=== PATIENT | male | born 1935 | race Caucasian/White ===

== ENCOUNTER 2017-02-28 11:33 | Inpatient (IN) ==
--- NOTE | 2017-02-28 12:11 | Emergency Department Note ---
Disposition Clinical Impression: Confusion, Edema of right lower extremity, Unable to ambulate Disposition: Admitted As Inpatient Condition: Good Referrals: Kranthi Waller MD [Primary Care Provider] - Forms: ED Satisfaction Letter Time of Disposition: 15:36 Extremity Problem HPI - General Chief complaint: ED Extremity Problem,Nontraumatic Stated complaint: Possible DVT Time Seen by Provider: 02/28/17 11:40 Source: patient, family Mode of arrival: ambulatory Limitations: no limitations Nursing Notes Reviewed: Yes Vital Signs Reviewed: Yes - History of Present Illness HPI Narrative: Patient is an 81-year-old male with past medical history of Alzheimer's, CKD, diabetes, venous stasis of bilateral lower extremity. Edema members with the patient states that he usually wears compression stockings daily. He has not been wearing them for the past couple days. This morning, she noticed that his right lower extremity is significantly more swollen and erythematous compared to his left lower extremity. She has also noticed that he has some difficulty with ambulating on the right LE. The patient himself denies any pain, any numbness, tingling, weakness. Denies any chest pain, shortness breath, nausea, vomiting, fevers, abdominal pain. Patient's daughter was concerned about DVT. Is requesting an ultrasound Pain Scale: 5 - Related Data Previous Rx's Medication Instructions Recorded Albuterol Sulfate [Albuterol 1 puff IH Q6HR #1 hfa.aer.ad 11/22/16 Inhaler] Guaifenesin [Mucinex] 600 mg PO BID #20 tab.er.12h 11/22/16 PredniSONE [Prednisone] 50 mg PO DAILY #4 tablet 11/22/16 Allergies Allergy/AdvReac Type Severity Reaction Status Date / Time No Known Allergies Allergy Verified 11/22/16 20:29 Constitutional: Denies: fever Eyes: Denies: eye pain ENT ED: Denies: ear pain Cardiovascular: Denies: chest pain, palpitations Respiratory: Denies: cough, dyspnea, wheezes Gastrointestinal: Denies: abdominal pain, nausea, vomiting, diarrhea, constipation Musculoskeletal: Reports: other Past Medical History - Past Medical History Attestation: Yes The following information was validated with the patient. Source: patient Medical history: Reports: COPD, dementia, diabetes, hyperlipidemia, hypertension , thyroid disease, other Psychiatric history: Reports: no psych history - Social History Smoking Status: Never smoker Smokeless Tobacco Status: No Alcohol use: Reports: none Drug use: Reports: none Physical Exam - General Limitations: no limitations General appearance: alert - Head Head exam: atraumatic, normocephalic, normal inspection - Eye Eye exam: Present: normal appearance, PERRL, EOMI - Extremities Exam Extremities exam: Present: full ROM, pedal edema, other (Patient has venous stasis of bilateral lower extremity's, 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 Right lower extremity significantly more edematous and erythematous than left. Edema worsened all the way up to mid thigh. Pedal +2/4 pulses bilaterally. Posterior tibial pulse +1/4 on right, +2 /4 on left.). Absent: tenderness Course Course Narrative: Patient mildly hypertensive on presentation. 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 Right lower extremity significantly more edematous and erythematous than left. Edema worsened all the way up to mid thigh. Pedal +2/4 pulses bilaterally. Posterior tibial pulse +1/4 on right , +2/4 on left. We will order a Doppler ultrasound of the right LE for DVT assessment. 15:13 Labs show mildly worsened CKD. Head CT negative for any acute intracranial abnormality. Chest x-ray negative for any acute abnormality. Patient was stood up and try to ambulate around the room and was unable to. Patient thought is requesting admission, she is unable to care for him at home. Will admit patient for right lower extremity swelling and edema, inability to ambulate, increased confusion from baseline. Chest X-Ray 02/28/17 12:16 IMPRESSION: 1. No acute abnormality. D/ / Jr Aguirre MD / Jr Aguirre MD Interpreting Provider: Jr Aguirre MD Head CT 02/28/17 12:17 IMPRESSION: No acute intracranial abnormality. D/ / Jarrett Vega MD / Jarrett Vega MD Interpreting Provider: Jarrett Vega MD Vital Signs Temperature 98 F 02/28/17 11:34 Pulse Rate 68 02/28/17 11:34 Respiratory Rate 18 02/28/17 11:34 Blood Pressure 161/74 02/28/17 11:34 O2 Sat by Pulse Oximetry 97 02/28/17 11:34 Temperature 98 F 02/28/17 11:34 Pulse Rate 65 02/28/17 15:01 Respiratory Rate 18 02/28/17 15:01 Blood Pressure 156/61 02/28/17 15:01 O2 Sat by Pulse Oximetry 96 02/28/17 15:01 Oxygen Delivery Oxygen Delivery Room Air Extremity Problem, [place] - [facility] Narrative Medical decision making narrative: Patient mildly hypertensive on presentation. 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 Right lower extremity significantly more edematous and erythematous than left. Edema worsened all the way up to mid thigh. Pedal +2/4 pulses bilaterally. Posterior tibial pulse +1/4 on right , +2/4 on left. We will order a Doppler ultrasound of the right LE for DVT assessment. 15:13 Labs show mildly worsened CKD. Head CT negative for any acute intracranial abnormality. Chest x-ray negative for any acute abnormality. Patient was stood up and try to ambulate around the room and was unable to. Patient thought is requesting admission, she is unable to care for him at home. Will admit patient for right lower extremity swelling and edema, inability to ambulate, increased confusion from baseline. - Medical Records Medical records reviewed: Yes I reviewed the patient's medical records. - Lab Data Lab results reviewed: Yes I reviewed the patient's lab results. Result diagrams: 02/28/17 12:39 02/28/17 12:39 Lab Results 02/28/17 02/28/17 02/28/17 Range/Units 12:39 12:39 12:39 WBC 11.4 H (4.3-11.1) K/mcL RBC 3.96 L (4.19-5.50) M/mcL Hgb 11.5 L (12.9-16.9) g/dL Hct 36.2 L (37.5-50.1) % MCV 91.4 (83.0-100.0) fL MCH 29.0 (28.0-33.3) pg MCHC 31.8 (31.6-35.5) g/dL RDW 13.2 (11.5-14.5) % Plt Count 175 (140-400) K/mcL MPV 12.0 (9.4-12.4) fL Immature Gran % 0.5 (0-4) % Seg Neutrophils % 79.3 % Lymphocytes % 9.3 % Monocytes % 8.7 % Eosinophils % 1.8 % Basophils % 0.4 % Neutrophils # 9.1 H (1.6-8.9) K/mcL Lymphocytes # 1.1 (0.6-4.6) K/mcL Monocytes # 1.0 (0.0-1.3) K/mcL Eosinophils # 0.2 (0.0-0.6) K/mcL Basophils # 0.1 (0.0-0.2) K/mcL Sodium 142 (136-145) mEq/L Potassium 4.0 (3.5-4.5) mEq/L Chloride 100 (98-109) mEq/L Carbon Dioxide 31 H (19-29) mEq/L BUN 34 H (8-26) mg/dL Creatinine 2.16 H (0.72-1.25) mg/dL Est GFR ( Amer) 36 L (> 60) Est GFR (Non-Af Amer) 29 L (> 60) BUN/Creatinine Ratio 16 (6-26) Glucose 185 H (70-99) mg/dL Calculated Osmolality 306 H (280-300) Calcium 9.4 (8.6-10.8) mg/dL Troponin I 0.01 (0-0.03) ng/mL - Radiology Data Radiology results reviewed: Yes I reviewed the patient's radiology results. Chest X-Ray 02/28/17 12:16 IMPRESSION: 1. No acute abnormality. D/ / Jr Aguirre MD / Jr Aguirre MD Interpreting Provider: Jr Aguirre MD Head CT 02/28/17 12:17 IMPRESSION: No acute intracranial abnormality. D/ / Jarrett Vega MD / Jarrett Vega MD Interpreting Provider: Jarrett Vega MD [place] - [place] Situation: Demographics, MOA Background: Presenting Complaint, Relevant PMH, Meds, & Allergies Assessment: Course and respsone to treatment, Exam Concerns, Patient/Family Expectation, Pertinant Lab Results, Outstanding Labs Recommendation: Barrier(s) to disposition, Recommendation based on pending studies, treatments, or consults [place] Report Given to: Dr. Charly Yap Repor Time: 15:36 Attestation Statement - Attestation Attestation: Patient was seen with resident physician. I reviewed the history, physical, assessment and plan, and agree with the findings. I also personally evaluated this patient and had [id number] time with this patient. A 1-year-old male presents to the emergency department with 2 main complaints. Both of these were communicated from the family members the patient's Alzheimer's and is unable to provide a history. Complaints are one increased swelling to the right lower extremity with possible pain. But also worsening coordination and inability to ambulate as he typically can do. Patient has Alzheimer's and are not sure if this is a worsening of disease he also has a history of mini strokes in the not sure if he has had one of those. They note that they have not been using his compression socks for the last 2-3 days which may have prompted the increased swelling of the lower extremity especially on the right side. Family does note that the right one is usually a little bit more swollen than the left, but this is worse with some skin changes as well that are not typically seen. On examination ENT is unremarkable. Heart and lungs are normal. Abdomen is soft and nontender. Extremities the right lower extremity significantly more swollen than the left. Distal pulses are intact. Could not elicit pain with palpation of the posterior calf or posterior thigh on either side. Neurologically the patient provides very little history but does follow some commands and seems to have symmetric strength. Skin exam patient has some erythematous skin changes to the right lower extremity and some darkened skin changes to the left lower extremity both consistent with chronic venous insufficiency, as opposed to acute cellulitis or other acute problems. We will get a head CT scan and check the labs that were drawn earlier today. Is to look into the complaint of worsening ability to ambulate. Additionally will get a duplex of the right lower extremity to rule out a DVT or other such abnormality. Disposition will be determined by what the patient can ambulate throughout his stay and also findings of the workup. DVT study was negative, the patient's unable to ambulate. We will need to admit for PT and OT, and possible intermediate placement. Discussed with hospitalist to arrange admission. I agree with the resident physician assessment and plan.
[2017-02-28 13:02] LABS: Basophils # 0.1 K/mcL (0.0-0.2); Basophils % 0.4 %; Eosinophils # 0.2 K/mcL (0.0-0.6); Eosinophils % 1.8 %; Hematocrit 36.2 % (37.5-50.1); Hemoglobin 11.5 g/dL (12.9-16.9); Immature Granulocytes % 0.5 % (0-4); Lymphocytes # 1.1 K/mcL (0.6-4.6); Lymphocytes % 9.3 %; Mean Corpuscular HGB Conc 31.8 g/dL (31.6-35.5); Mean Corpuscular Volume 91.4 fL (83.0-100.0); Monocytes % 8.7 %; Neutrophils # 9.1 K/mcL (1.6-8.9); Platelet Count 175 K/mcL (140-400); Red Blood Count 3.96 M/mcL (4.19-5.50); Red Cell Distribution Width 13.2 % (11.5-14.5); Segmented Neutrophils % 79.3 %
[2017-02-28 13:13] LABS: Calcium 9.4 mg/dL (8.6-10.8)
--- NOTE | 2017-02-28 16:21 | Internal Med History&Physical ---
Date of Encounter: 02/28/17 Time of Encounter: 16:18 Assessment and Plan (1) Cellulitis Current visit: Yes Status: Acute Suspect early cellulitis. There was slight increase in warmth and redness on the right ankle region and lower leg. I will start the patient on unison. 3 g IV to 6 hours. He has leukocytosis. Will follow his right leg. If no improvement will cover from MRSA. I will check each source ERP and uric acid. He has no prior history of gout. X-ray of the right ankle also be performed to rule out any fractures. Physical therapy and occupational therapy to see the patient Qualifiers: Qualified Code(s): L03.90 - Cellulitis, unspecified (2) Diabetes mellitus type 2 in obese Current visit: Yes Status: Acute Sliding scale insulin Q4 hours. (3) CKD stage 4 due to type 2 diabetes mellitus Current visit: Yes Status: Acute Stable (4) Abdominal distension Current visit: Yes Status: Acute Abdomen is distended. He has divercation of recti. Bowel sounds are present in all tenderness. Is moving his bowels Internal Medicine - H&P: HPI Chief complaint: RIGHT ANKLE PAIN History of present illness: Mr. Urban is a 81 year old male with multiple medical problems including Alzheimer's dementia, diabetes mellitus, chronic kidney disease, venous stasis presents the emergency room today with the main complain of right ankle pain and weakness. Patient was in his usual state of health this morning in fact his daughter has a VDU showing that patient was ambulating independently at home. Throughout the day patient started having problems with ambulation. Specifically he is having problems weight-bearing on the right ankle. There is some increased redness and slight increase in warmth on the right ankle. Patient daughter was concerned brought him to the emergency room. Doppler and the ER. No evidence of DVT. Patient denied any fevers. However he has been more sleepy. He has also been more nauseous and dry heaving. He has been moving bowels fine stools were more soft than usual. No recent antibiotic use. Patient denies any trauma right ankle. Patient denies any focal upper or lower extremity weakness, tingling or numbness in any extremity, facial symmetry or speech sluriness. No recent antibiotic use. Past Med Surg Social Fam HX - Past Medical History Medical history: COPD, dementia, diabetes, hyperlipidemia, hypertension, thyroid disease, other Psychiatric history: no psych history - Social History Smoking Status: Never smoker Smokeless Tobacco Status: No Alcohol use: none Drug use: none Internal Medicine - H&P: Meds Atenolol [Tenormin] 25 mg PO DAILY 02/28/17 [History] Bimatoprost 1 drop OP HS 02/28/17 [History] Calcitriol [Rocaltrol] 0.25 mcg PO DAILY 02/28/17 [History] Cholecalciferol (D-3) [Vitamin D] 5,000 unit PO DAILY 02/28/17 [History] Donepezil [Aricept] 10 mg PO HS 02/28/17 [History] Fenofibrate [Tricor] 54 mg PO DAILY 02/28/17 [History] Ferrous Sulfate [Iron] 325 mg PO Q48H 02/28/17 [History] Furosemide [Lasix] 80 mg PO QAM 02/28/17 [History] Glimepiride [Amaryl] 2 mg PO DAILY 02/28/17 [History] Insulin Glargine,Hum.rec.anlog [Lantus Solostar] 38 unit SQ DAILY 02/28/17 [ History] Mirabegron [Myrbetriq] 50 mg PO DAILY 02/28/17 [History] SitaGLIPtin [Januvia] 50 mg PO DAILY 02/28/17 [History] Timolol Maleate 0.5% 1 drop OP QAM 02/28/17 [History] Allergies No Known Allergies Allergy (Verified 11/22/16 20:29) All Systems PM: A 10-system review of systems was performed and is negative for pertinent findings except as documented above in the HPI. Review of systems: 10 point ROS Is negative except for HPI. - Constitutional Vitals: Temp Pulse Resp BP Pulse Ox 98 F 65 18 156/61 96 02/28/17 11:34 02/28/17 15:01 02/28/17 15:01 02/28/17 15:01 02/28/17 15:01 Exam: Gen.: patient is alert oriented not in distress. Cardiac: Normal S1 S2 no additional sounds or murmurs chest: clear to auscultation abdomen protruberent but soft and BS present. No tenderness lower extremity: SLIGHT INCREASE IN WARMTH IN RIGHT ANKLE AND REDNESS COMPARED TO LEFT neuro no focal deficit Internal Med - H&P Results - Labs CBC & Chem 7: 02/28/17 12:39 02/28/17 12:39
[2017-02-28] MEDS ORDERED: Insulin LISPRO 300 UNITS/3 ML VIAL SQ SCH (16:30)
[2017-02-28] MEDS: Insulin LISPRO 300 UNITS/3 ML VIAL SQ SCH ×3 (17:33→23:21)
[2017-02-28] MEDS: Ampicillin/Sulbactam 3,000 MG in 0.9 % Sodium Chloride Mini Bag 100 ML IVPB SCH (18:01)
[2017-02-28 18:50] LABS: Bilirubin,Urine Negative (Negative); Blood,Urine Negative (Negative); Clarity,Urine Clear (Clear); Color,Urine Yellow (Yellow); Glucose,Urine (UA) Normal (Normal); Ketones,Urine Negative (Negative); Leukocyte Esterase,Urine Negative (Negative); Nitrite,Urine Negative (Negative); PH,Urine 7.5 pH Units (5.0-8.0); Protein,Urine Negative (Neg-Trace); Specific Gravity,Urine 1.012 (1.010-1.025); Urobilinogen,Urine Normal (Normal)
[2017-02-28] MEDS: *HR* Heparin 5,000 UNIT/ML VIAL SQ SCH (20:43)
[2017-02-28] MEDS: BIMATOPROST OP SCH (20:44)
[2017-02-28 21:03] LABS: Uric Acid 9.3 mg/dL (3.5-7.2)
[2017-03-01] MEDS: Insulin LISPRO 300 UNITS/3 ML VIAL SQ SCH ×6 (04:01→23:53)
[2017-03-01] MEDS: *HR* Heparin 5,000 UNIT/ML VIAL SQ SCH ×3 (05:18→21:13)
[2017-03-01] MEDS: Ampicillin/Sulbactam 3,000 MG in 0.9 % Sodium Chloride Mini Bag 100 ML IVPB SCH (05:19)
[2017-03-01 05:57] LABS: Basophils # 0.1 K/mcL (0.0-0.2); Basophils % 0.6 %; Eosinophils # 0.4 K/mcL (0.0-0.6); Eosinophils % 4.2 %; Hematocrit 32.7 % (37.5-50.1); Hemoglobin 10.4 g/dL (12.9-16.9); Immature Granulocytes % 0.5 % (0-4); Lymphocytes # 1.1 K/mcL (0.6-4.6); Lymphocytes % 12.1 %; Mean Corpuscular HGB Conc 31.8 g/dL (31.6-35.5); Mean Corpuscular Hemoglobin 29.1 pg (28.0-33.3); Mean Corpuscular Volume 91.6 fL (83.0-100.0); Mean Platelet Volume 12.2 fL (9.4-12.4); Monocytes # 1.2 K/mcL (0.0-1.3); Monocytes % 13.3 %; Neutrophils # 6.1 K/mcL (1.6-8.9); Platelet Count 157 K/mcL (140-400); Red Blood Count 3.57 M/mcL (4.19-5.50); Red Cell Distribution Width 13.5 % (11.5-14.5); Segmented Neutrophils % 69.3 %
[2017-03-01 06:09] LABS: Calcium 8.9 mg/dL (8.6-10.8); Magnesium 1.9 mg/dL (1.6-2.6); Potassium 3.6 mEq/L (3.5-4.5)
[2017-03-01] MEDS: Furosemide 40 MG TABLET PO SCH (08:37)
[2017-03-01] MEDS: Cholecalciferol (D-3) 1,000 UNIT TABLET PO SCH (08:38)
[2017-03-01] MEDS: Fenofibrate 54 MG TABLET PO SCH (08:38)
[2017-03-01] MEDS ORDERED: Famotidine 20 MG TABLET PO SCH (09:00)
--- NOTE | 2017-03-01 11:13 | Internal Med Progress Note ---
Date of Encounter: 03/01/17 Time of Encounter: 11:10 - Assessment and plan (1) Cellulitis Current Visit: Yes Status: Acute Assessment and plan: Acute metabolic encephalopathy secondary to right lower extremity cellulitis Stop Unasyn and start Ancef, may be discharged on Keflex is improving Blood cultures pending High risk for falling Qualifiers: Qualified Code(s): L03.90 - Cellulitis, unspecified (2) Confusion Current Visit: Yes Status: Acute (3) Unable to ambulate Current Visit: Yes Status: Acute Assessment and plan: Generalized weakness and difficulty ambulating likely secondary to right lower extremity cellulitis and confusion/Alzheimer's dementia PTOT (4) Diabetes mellitus type 2 in obese Current Visit: Yes Status: Acute Assessment and plan: Continue insulin sliding scale (5) CKD stage 4 due to type 2 diabetes mellitus Current Visit: Yes Status: Acute Assessment and plan: Stable May continue Lasix - Subjective Interval history: can not remember which leg was affected, is oriented, denies fever, no abdominal pain , no dysuria, no diarrhea, feels very weak, no SOB or CP - Constitutional Vitals: Temp Pulse Resp BP Pulse Ox 98.4 F 70 18 143/64 96 03/01/17 10:38 03/01/17 10:38 03/01/17 10:38 03/01/17 10:38 03/01/17 10:38 General appearance: Present: A&O X 3 - Head Head exam: Present: atraumatic, normocephalic - Eye Eye exam: Present: PERRL, conjuntiva pink, sclera anicteric Pupils: Present: PERRL - Neck Neck exam general surgery: Present: supple, trachea midline. Absent: lymphadenopathy - Respiratory Respiratory exam: Present: decreased breath sounds, CTAB. Absent: accessory muscle use, rales, rhonchi, wheezes - Cardiovascular Cardiovascular exam: Present: RRR, +S1, +S2. Absent: diastolic murmur, gallop, rubs, systolic murmur - GI/Abdominal GI/Abdominal exam: Present: normal bowel sounds, soft, no peritoneal signs. Absent: distended, tenderness - Extremities Exam Extremities exam: Present: pedal edema (right ankle erythema 6 cm diameter, tender and warm, generalized weakness), warm, radial pulses palpable and symetrical. Absent: calf tenderness, cyanotic - Neurological Exam Neurological exam: Present: CN II-XII intact, oriented X3, no focal deficits. Absent: pronater drift, facial droop, speech deficit - Skin Skin exam: Present: dry, intact Internal Medicine: Result - Labs CBC & Chem 7: 03/01/17 05:31 03/01/17 05:31 Labs: Short CBC 03/01/17 Range/Units 05:31 WBC 8.8 (4.3-11.1) K/mcL Hgb 10.4 L (12.9-16.9) g/dL Hct 32.7 L (37.5-50.1) % Plt Count 157 (140-400) K/mcL Neutrophils # 6.1 (1.6-8.9) K/mcL BMP 03/01/17 05:31 Sodium 140 Potassium 3.6 Chloride 101 Carbon Dioxide 30 H BUN 31 H Creatinine 1.98 H Glucose 104 H Calcium 8.9 Urine 02/28/17 Range/Units 17:37 Urine Color Yellow (Yellow) Urine Clarity Clear (Clear) Urine pH 7.5 (5.0-8.0) pH Units Ur Specific Dawson 1.012 (1.010-1.025) Urine Protein Negative (Neg-Trace) mg/dL Urine Glucose (UA) Normal (Normal) mg/dL - Impressions Impressions Ankle X-Ray 02/28/17 16:08 IMPRESSION: 1. No acute osseous abnormality identified. 2. 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 3. Pronounced nonspecific soft tissue swelling about the ankle. 4. Atherosclerotic disease. D/ / Corey Carballo MD / Corey Carballo MD Interpreting Provider: Corey Carballo MD Consult Discharge Plan - Plan Referrals: Kranthi Waller MD [Primary Care Provider] -
[2017-03-01] MEDS: ceFAZolin 1,000 MG in D5% in Water (Mini-Bag+) 100 ML IVPB SCH ×2 (11:36→21:12)
--- NOTE | 2017-03-01 14:03 | Electrocardiograph Report ---
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
[2017-03-01] MEDS: BIMATOPROST OP SCH (22:01)
[2017-03-02 04:51] LABS: Hematocrit 32.2 % (37.5-50.1); Hemoglobin 10.3 g/dL (12.9-16.9); Mean Corpuscular Hemoglobin 29.2 pg (28.0-33.3); Mean Corpuscular Volume 91.2 fL (83.0-100.0); Mean Platelet Volume 12.2 fL (9.4-12.4); Platelet Count 156 K/mcL (140-400); Red Blood Count 3.53 M/mcL (4.19-5.50); Red Cell Distribution Width 13.3 % (11.5-14.5)
[2017-03-02] MEDS: Insulin LISPRO 300 UNITS/3 ML VIAL SQ SCH ×5 (05:13→20:46)
[2017-03-02] MEDS: ceFAZolin 1,000 MG in D5% in Water (Mini-Bag+) 100 ML IVPB SCH ×3 (05:15→20:45)
[2017-03-02] MEDS: *HR* Heparin 5,000 UNIT/ML VIAL SQ SCH ×3 (05:15→20:45)
[2017-03-02 05:17] LABS: Calcium 9.1 mg/dL (8.6-10.8); Potassium 3.7 mEq/L (3.5-4.5)
[2017-03-02] MEDS: Fenofibrate 54 MG TABLET PO SCH (08:28)
[2017-03-02] MEDS: Furosemide 40 MG TABLET PO SCH (08:28)
[2017-03-02] MEDS: Cholecalciferol (D-3) 1,000 UNIT TABLET PO SCH (08:28)
--- NOTE | 2017-03-02 13:01 | Venous Imaging Report ---
LE Venous Duplex Patient Name:Serge Urban Order Number:[id number] Procedure Date:02/28/2017 Date:4Age:81 yrs Gender:Male Location:[facility] ED Room #: ER30 Senior Operator:Essence Garcia Referring MD:Parviz Mallory DO preschool substitute teacher:Kranthi Waller MD Reading MD:Benjamin aGma MD , FACS Primary Indications:RLE swelling, decreased pulses, erythemia Secondary Indications: Impressions: Right lower extremity: normal superficial and deep exam. Left lower extremity: normal contralateral exam. Recommendations: After imaging the patient returned to their room. Gave vascular preliminary results to Parviz Mallory in the emergency department on 02/28/2017 at 13:20. Test completed on 02/28/2017 at 1:11:00 pm. Findings Venous Duplex Results: Right: Venous imaging of the lower extremity reveals full patency and normal vessel compressibility of the right distal iliac, right common femoral, right superficial femoral, right popliteal, right posterior tibial, right peroneal, right great saphenous and right lesser saphenous. Doppler signals in the evaluated veins were normal. Left: Venous imaging of the lower extremity reveals full patency and normal vessel compressibility of the left common femoral. Doppler signals in the evaluated veins were normal. Prior Study: No prior study available for comparison. Lower Extremity Venous Duplex Side Vein Compress Spontaneous Flow Augment Diameter (cm) Depth (cm) Right Distal Iliac Normal Yes Phasic Yes Right Common Femoral Normal Yes Phasic Yes Right Superficial Femoral Normal Yes Phasic Yes Right Popliteal Normal Yes Phasic Yes Right Posterior Tibial Normal Yes Phasic Yes Right Peroneal Normal Yes Phasic Yes Right Great Saphenous Normal Yes Phasic Yes Right Lesser Saphenous Normal Yes Phasic Yes Left Common Femoral Normal Yes Phasic Yes Updated by Benjamin Gama MD, FACS on 03/02/2017 12:54:35 PM Benjamin Gama MD electronically signed on 03/02/2017 12:55:00 PM with status of Final
--- NOTE | 2017-03-02 13:38 | Internal Med Progress Note ---
Date of Encounter: 03/02/17 Time of Encounter: 13:36 - Assessment and plan (1) Cellulitis Current Visit: Yes Status: Acute Assessment and plan: Acute metabolic encephalopathy secondary to right lower extremity cellulitis Stopped Unasyn COntinue Ancef day 2 Blood cultures pending Discharge planning to ECF on Thursday High risk for falling Qualifiers: Qualified Code(s): L03.90 - Cellulitis, unspecified (2) Confusion Current Visit: Yes Status: Acute (3) Unable to ambulate Current Visit: Yes Status: Acute Assessment and plan: Generalized weakness and difficulty ambulating likely secondary to right lower extremity cellulitis and confusion/Alzheimer's dementia PTOT (4) Diabetes mellitus type 2 in obese Current Visit: Yes Status: Acute Assessment and plan: Continue insulin sliding scale (5) CKD stage 4 due to type 2 diabetes mellitus Current Visit: Yes Status: Acute Assessment and plan: Stable May continue Lasix fall precautions - Time Spent With Patient Greater than 35 minutes - Subjective Interval history: Complains of less pain on his right lower extremity, is oriented, denies fever, no abdominal pain , no dysuria, no diarrhea, feels very weak, no SOB or CP - Constitutional Vitals: Temp Pulse Resp BP Pulse Ox 98.3 F 61 16 157/77 95 03/02/17 11:50 03/02/17 11:50 03/02/17 11:50 03/02/17 11:50 03/02/17 11:50 General appearance: Present: A&O X 3 Exam: very hard of hearing - Head Head exam: Present: atraumatic, normocephalic - Eye Eye exam: Present: PERRL, conjuntiva pink, sclera anicteric Pupils: Present: PERRL - Neck Neck exam general surgery: Present: supple, trachea midline. Absent: lymphadenopathy - Respiratory Respiratory exam: Present: decreased breath sounds, CTAB. Absent: accessory muscle use, rales, rhonchi, wheezes - Cardiovascular Cardiovascular exam: Present: RRR, +S1, +S2. Absent: diastolic murmur, gallop, rubs, systolic murmur - GI/Abdominal GI/Abdominal exam: Present: normal bowel sounds, soft, no peritoneal signs. Absent: distended, tenderness - Extremities Exam Extremities exam: Present: warm, radial pulses palpable and symetrical. Absent : calf tenderness, cyanotic, pedal edema Additional comments: bilateral +1 pitting edema in both lower extremities area of erythema in the internal right ankle is decreasing - Neurological Exam Neurological exam: Present: CN II-XII intact, oriented X3, no focal deficits. Absent: pronater drift, facial droop, speech deficit - Skin Skin exam: Present: dry, intact Internal Medicine: Result - Labs CBC & Chem 7: 03/02/17 04:32 03/02/17 04:32 Labs: Short CBC 03/02/17 Range/Units 04:32 WBC 7.7 (4.3-11.1) K/mcL Hgb 10.3 L (12.9-16.9) g/dL Hct 32.2 L (37.5-50.1) % Plt Count 156 (140-400) K/mcL [facility] 03/02/17 04:32 Sodium 141 Potassium 3.7 Chloride 103 Carbon Dioxide 29 BUN 31 H Creatinine 2.15 H Glucose 127 H Calcium 9.1 - VTE Documentation of Mechanical Device: Intermittent pneumatic compression device Consult Discharge Plan - Plan Referrals: Kranthi Waller MD [Primary Care Provider] - 03/09/17 10:00 am
[2017-03-02] MEDS: BIMATOPROST OP SCH (20:45)
[2017-03-03] MEDS: Insulin LISPRO 300 UNITS/3 ML VIAL SQ SCH ×6 (03:21→21:16)
[2017-03-03] MEDS: ceFAZolin 1,000 MG in D5% in Water (Mini-Bag+) 100 ML IVPB SCH ×2 (05:04→11:46)
[2017-03-03] MEDS: *HR* Heparin 5,000 UNIT/ML VIAL SQ SCH ×3 (05:05→21:16)
[2017-03-03] MEDS: Cholecalciferol (D-3) 1,000 UNIT TABLET PO SCH (08:38)
[2017-03-03] MEDS: Fenofibrate 54 MG TABLET PO SCH (08:38)
[2017-03-03] MEDS: Furosemide 40 MG TABLET PO SCH (08:38)
--- NOTE | 2017-03-03 08:42 | Internal Med Progress Note ---
Date of Encounter: 03/03/17 Time of Encounter: 08:40 - Assessment and plan (1) Cellulitis Current Visit: Yes Status: Acute Assessment and plan: Acute metabolic encephalopathy secondary to right lower extremity cellulitis Patient is at high risk for falling Plan: -Continue Ancef day 3 -Plan to discharge on 7 days of keflex 500mg BID -Blood cultures pending -Discharge pending to ECF on Thursday Qualifiers: Site of cellulitis: extremity Site of cellulitis of extremity: lower extremity Laterality: right Qualified Code(s): L03.115 - Cellulitis of right lower limb (2) Confusion Current Visit: Yes Status: Acute (3) Unable to ambulate Current Visit: Yes Status: Acute Assessment and plan: Generalized weakness and difficulty ambulating likely secondary to right lower extremity cellulitis and confusion/Alzheimer's dementia Plan: -PTOT -Fall Precautions (4) Diabetes mellitus type 2 in obese Current Visit: Yes Status: Acute Assessment and plan: Plan: -Levemir 16units dailly -Continue insulin sliding scale -Accuchecks ACHS (5) CKD stage 4 due to type 2 diabetes mellitus Current Visit: Yes Status: Acute Assessment and plan: Stable Plan: -Continue Lasix -Monitor BMP (6) DVT prophylaxis Current Visit: Yes Status: Acute Assessment and plan: Hep SQ - Subjective Interval history: Patient seen and examined. He is sitting up on the side of the bed. He denies any complaints including CP, SOB, abdominal pain, LE pain. He is oriented to person and place, but not time or situation. - Constitutional Vitals: Temp Pulse Resp BP Pulse Ox 97.7 F 61 16 164/75 93 03/03/17 06:50 03/03/17 06:50 03/03/17 06:50 03/03/17 06:50 03/03/17 06:50 General appearance: Present: cooperative, A&O X 2, no acute distress, obese - Head Head exam: Present: atraumatic, normocephalic - Eye Eye exam: Present: PERRL, conjuntiva pink, sclera anicteric Pupils: Present: PERRL - Neck Neck exam general surgery: Present: supple, trachea midline. Absent: lymphadenopathy - Respiratory Respiratory exam: Present: CTAB. Absent: accessory muscle use, rales, rhonchi, wheezes - Cardiovascular Cardiovascular exam: Present: RRR, +S1, +S2. Absent: diastolic murmur, gallop, rubs, systolic murmur - GI/Abdominal GI/Abdominal exam: Present: normal bowel sounds, soft, no peritoneal signs. Absent: distended, tenderness - Extremities Exam Extremities exam: Present: normal capillary refill, warm, radial pulses palpable and symetrical. Absent: calf tenderness, cyanotic, pedal edema, tenderness - Neurological Exam Neurological exam: Present: alert. Absent: facial droop, speech deficit Additional comments: Alert and oriented to person and place, Not oriented to time or situation - Psychiatric Psychiatric exam: Present: normal affect, normal mood - Skin Skin exam: Present: abrasion (multiple abrasions to top of head), dry. Absent: cyanosis, diaphoretic, erythema Additional comments: chronic venous stasis changes bilateral LE No erythema, warmth or swelling Internal Medicine: Result - Labs CBC & Chem 7: 03/03/17 08:53 03/03/17 08:53 - VTE Documentation of Mechanical Device: Intermittent pneumatic compression device Consult Discharge Plan - Plan Referrals: Kranthi Waller MD [Primary Care Provider] - 03/09/17 10:00 am
[2017-03-03] MEDS ORDERED: Famotidine 20 MG TABLET PO SCH (09:00)
[2017-03-03 09:19] LABS: Basophils # 0.1 K/mcL (0.0-0.2); Basophils % 0.7 %; Eosinophils # 0.4 K/mcL (0.0-0.6); Eosinophils % 4.7 %; Hemoglobin 11.5 g/dL (12.9-16.9); Immature Granulocytes % 0.7 % (0-4); Immature Platelets 10.3 % (1.1-6.1); Lymphocytes # 1.2 K/mcL (0.6-4.6); Lymphocytes % 15.5 %; Mean Corpuscular HGB Conc 31.9 g/dL (31.6-35.5); Mean Corpuscular Volume 90.9 fL (83.0-100.0); Monocytes # 0.8 K/mcL (0.0-1.3); Monocytes % 10.4 %; Neutrophils # 5.2 K/mcL (1.6-8.9); Platelet Count 177 K/mcL (140-400); Red Blood Count 3.96 M/mcL (4.19-5.50); Red Cell Distribution Width 13.1 % (11.5-14.5)
[2017-03-03 09:31] LABS: Calcium 9.7 mg/dL (8.6-10.8); Potassium 4.1 mEq/L (3.5-4.5)
[2017-03-03] MEDS: Insulin DETEMIR 100 UNIT/ML X5UNITS SQ SCH (09:40)
[2017-03-03] MEDS: BIMATOPROST OP SCH (21:17)
[2017-03-03] MEDS: Ipratropium/Albuterol Neb 3 ML IH PRN (23:38)
[2017-03-04] MEDS: ceFAZolin 1,000 MG in D5% in Water (Mini-Bag+) 100 ML IVPB SCH ×2 (01:10→11:21)
[2017-03-04] MEDS: *HR* Heparin 5,000 UNIT/ML VIAL SQ SCH (05:51)
[2017-03-04 06:41] LABS: Calcium 9.6 mg/dL (8.6-10.8); Potassium 3.7 mEq/L (3.5-4.5)
[2017-03-04] MEDS: Insulin DETEMIR 100 UNIT/ML X5UNITS SQ SCH (08:36)
[2017-03-04] MEDS: Cholecalciferol (D-3) 1,000 UNIT TABLET PO SCH (08:36)
[2017-03-04] MEDS: Fenofibrate 54 MG TABLET PO SCH (08:36)
[2017-03-04] MEDS: Furosemide 40 MG TABLET PO SCH (08:36)
[2017-03-04] MEDS: Insulin LISPRO 300 UNITS/3 ML VIAL SQ SCH ×2 (08:37→11:21)
[2017-03-04 10:51] VITALS: BP 153/73
--- NOTE | 2017-03-04 13:34 | Discharge Summary ---
<Adan Souza - Last Filed: 03/04/17 13:51> Date of Encounter: 03/04/17 Time of Encounter: 13:20 - Discharge Diagnosis (1) Edema of right lower extremity Priority: Primary Status: Acute (2) Cellulitis Priority: Primary Status: Acute Qualifiers: Site of cellulitis: extremity Site of cellulitis of extremity: lower extremity Laterality: right Qualified Code(s): L03.115 - Cellulitis of right lower limb (3) Diabetes mellitus type 2 in obese Priority: Secondary Status: Acute (4) CKD stage 4 due to type 2 diabetes mellitus Priority: Secondary Status: Acute (5) COPD (chronic obstructive pulmonary disease) with emphysema Priority: Secondary Status: Acute Qualifiers: Qualified Code(s): J43.9 - Emphysema, unspecified - Discharge Medications Prescriptions: Albuterol Sulfate [Ventolin Hfa] 18 gm IH Q4H PRN #1 hfa.aer.ad PRN Reason: Wheezing Cephalexin [Keflex] 500 mg PO BID 7 Days Home Medications: Atenolol [Tenormin] 25 mg PO DAILY 02/28/17 [History] Bimatoprost 1 drop OP HS 02/28/17 [History] Calcitriol [Rocaltrol] 0.25 mcg PO DAILY 02/28/17 [History] Cholecalciferol (D-3) [Vitamin D] 5,000 unit PO DAILY 02/28/17 [History] Donepezil [Aricept] 10 mg PO HS 02/28/17 [History] Fenofibrate [Tricor] 54 mg PO DAILY 02/28/17 [History] Ferrous Sulfate [Iron] 325 mg PO Q48H 02/28/17 [History] Furosemide [Lasix] 80 mg PO QAM 02/28/17 [History] Glimepiride [Amaryl] 2 mg PO DAILY 02/28/17 [History] Insulin Glargine,Hum.rec.anlog [Lantus Solostar] 38 unit SQ DAILY 02/28/17 [ History] Mirabegron [Myrbetriq] 50 mg PO DAILY 02/28/17 [History] SitaGLIPtin [Januvia] 50 mg PO DAILY 02/28/17 [History] Timolol Maleate 0.5% 1 drop OP QAM 02/28/17 [History] Albuterol Sulfate [Ventolin Hfa] 18 gm IH Q4H PRN #1 hfa.aer.ad 03/04/17 [Rx] Cephalexin [Keflex] 500 mg PO BID 7 Days 03/04/17 [Rx] Ipratropium/Albuterol Neb [Duoneb] 3 ml IH [id number] PRN #0 inhsol 03/04/17 [Rx] Allergies/Adverse Reactions: Allergies No Known Allergies Allergy (Verified 11/22/16 20:29) Date of admission: 03/01/17 12:04 Primary care physician: Kranthi Waller MD Discharging clinician: Adan Souza Anticipated date of discharge: 03/04/17 - Patient Status Disposition: Transfer SNF Condition: Good Functional capacity at discharge: uses cane/walker Overall status at discharge: patient is progressing back to baseline - Discharge Instructions Follow Up With: Kranthi Waller MD [Primary Care Provider] - 03/09/17 10:00 am - Diet and Activity Activity: as per physical therapy Diet: advance to your usual diet Interval History: Mr. Urban is a 81 year old male with multiple medical problems including Alzheimer's dementia, diabetes mellitus, chronic kidney disease, venous stasis admitted to general medical floor with acute metabolic encephalopathy and right lower extremity cellulitis. He was started on Unasyn IV. His laboratory work demonstrated acute on chronic kidney injury. During his inpatient stay he was continued on his home medications for his chronic medical conditions. On day 2 of his inpatient stay Unasyn was discontinued and he was started on Ancef. His mental status demonstrated improvement throughout the remainder of his inpatient stay. He is continued on Ancef for a total 5 days with improvement in his cellulitis which the border were clearly marked during his inpatient stay. Venous Doppler was completed of his right lower extremity and DVT was ruled out. He was seen by physical and occupational therapy and professor of social work. It is determined that he would need inpatient rehabilitation/swing bed at the time of discharge. He continued his inpatient treatments until his day of discharge 03/04/2017. He developed some mild wheezing and provided DuoNeb treatments, but did not require nasal cannula oxygen or any demise to his respiratory status. He was seen and evaluated patient bedside and deemed stable for discharge on 03/04/2017 [place]. Upon discharge she was discharged with a prescription for Keflex 500 mg by mouth twice a day for 7 days. Hospital course: Mr. Urban is a 81 year old male - Time Spent with Patient Total time spent providing and/or coordinating discharge services: - Constitutional Vitals: Temp Pulse Resp BP Pulse Ox 97.6 F 57 16 153/73 94 03/04/17 10:50 03/04/17 10:50 03/04/17 10:50 03/04/17 10:50 03/04/17 10:50 General appearance: Present: cooperative, A&O X 2, no acute distress, obese - Head Head exam: Present: atraumatic, normocephalic - Eye Eye exam: Present: PERRL, conjuntiva pink, sclera anicteric Pupils: Present: PERRL - ENT ENT exam: Present: mucous membranes moist - Neck Neck exam general surgery: Present: supple, trachea midline. Absent: lymphadenopathy - Respiratory Respiratory exam: Present: wheezes. Absent: accessory muscle use, rales, rhonchi - Cardiovascular Cardiovascular exam: Present: RRR, +S1, +S2. Absent: diastolic murmur, gallop, rubs, systolic murmur - GI/Abdominal GI/Abdominal exam: Present: normal bowel sounds, soft, no peritoneal signs. Absent: distended, tenderness - Extremities Exam Extremities exam: Present: warm, radial pulses palpable and symetrical. Absent : calf tenderness, cyanotic, pedal edema Additional comments: right medial ankle erythema improving - VTE Documentation of Mechanical Device: Intermittent pneumatic compression device <Declan Lew - Last Filed: 03/05/17 11:28> Date of Encounter: 03/05/17 Date of admission: 03/01/17 12:04 Primary care physician: Kranthi Waller MD Hospital course: Mr. Urban is a 81 year old male - Time Spent with Patient Total time spent providing and/or coordinating discharge services: - Constitutional Vitals: Temp Pulse Resp BP Pulse Ox 97.6 F 57 16 153/73 94 03/04/17 10:50 03/04/17 10:50 03/04/17 14:11 03/04/17 10:50 03/04/17 14:11 - Attending Attestation Given the visit, note and Continuity, this DC took greater than [address] Lew
--- NOTE | 2017-03-04 13:46 | Physician Discharge Referral ---
ExtendedCare Referral Info Transfer To: [facility] Provider in Charge after Transfer: PCP Institutional Level of Care: Skilled - Diagnosis (1) Edema of right lower extremity Priority: Primary Status: Acute (2) Cellulitis Priority: Primary Status: Acute (3) Diabetes mellitus type 2 in obese Priority: Secondary Status: Acute (4) CKD stage 4 due to type 2 diabetes mellitus Priority: Secondary Status: Acute (5) COPD (chronic obstructive pulmonary disease) with emphysema Priority: Secondary Status: Acute (6) Dementia Priority: Secondary Status: Acute - Transfer Medications Prescriptions: Albuterol Sulfate [Ventolin Hfa] 18 gm IH Q4H PRN #1 hfa.aer.ad PRN Reason: Wheezing Cephalexin [Keflex] 500 mg PO BID 7 Days Home Medications: Atenolol [Tenormin] 25 mg PO DAILY 02/28/17 [History] Bimatoprost 1 drop OP HS 02/28/17 [History] Calcitriol [Rocaltrol] 0.25 mcg PO DAILY 02/28/17 [History] Cholecalciferol (D-3) [Vitamin D] 5,000 unit PO DAILY 02/28/17 [History] Donepezil [Aricept] 10 mg PO HS 02/28/17 [History] Fenofibrate [Tricor] 54 mg PO DAILY 02/28/17 [History] Ferrous Sulfate [Iron] 325 mg PO Q48H 02/28/17 [History] Furosemide [Lasix] 80 mg PO QAM 02/28/17 [History] Glimepiride [Amaryl] 2 mg PO DAILY 02/28/17 [History] Insulin Glargine,Hum.rec.anlog [Lantus Solostar] 38 unit SQ DAILY 02/28/17 [ History] Mirabegron [Myrbetriq] 50 mg PO DAILY 02/28/17 [History] SitaGLIPtin [Januvia] 50 mg PO DAILY 02/28/17 [History] Timolol Maleate 0.5% 1 drop OP QAM 02/28/17 [History] Albuterol Sulfate [Ventolin Hfa] 18 gm IH Q4H PRN #1 hfa.aer.ad 03/04/17 [Rx] Cephalexin [Keflex] 500 mg PO BID 7 Days 03/04/17 [Rx] Ipratropium/Albuterol Neb [Duoneb] 3 ml IH [id number] PRN #0 inhsol 03/04/17 [Rx] Allergies/Adverse Reactions: Allergies No Known Allergies Allergy (Verified 11/22/16 20:29) - Respiratory Orders Smoking Cessation: Smoking cessation has been advised. For more information, call the [place] Tobacco Quit Line at 3-786-CTLE-NOW. - Ancillary Orders May use pressure relief devices daily prn, May consult with Dentist, Reinforcing Steel Placer, Pourer Crane Ladle PRN - Advance Directives Living Will: No Power of Nutrition Partner: No Code Status: DNR-Comfort Care - Mobility Orders Ambulate - Rehabiliation Orders Rehab Potential: Good Rehab Orders: Evaluation for Physical Therapy, Evaluation for Occupational Therapy - Treatments Skin tear care topically daily PRN per policy, Fleet enema rectally every other day PRN cleansing purposes CERTIFICATION: I certify that the transfer of the above named patient to an Extended Care Facility is necessary for the continuing treatment of the diagnosis listed. The above information is true and accurate reflection of patient's current condition. Confidential - Redisclosure prohibited without a patient's written consent.
[2017-03-04] MEDS: Ipratropium/Albuterol Neb 3 ML IH PRN (14:11)
[2017-03-04] MEDS ORDERED: Insulin LISPRO 300 UNITS/3 ML VIAL SQ SCH (21:00)
== END 2017-03-04 15:05 | disposition other institution (70) | DRG 602 ==
LOC: EMEROO 11:33 → 3BNU 11:33 → SUATTDRO 15:51 → 3BNU 17:04 → SUATTDRO 03-01 12:04
PROVIDERS: ADMIT Hospitalist; ATTEND Internal Medicine

== ENCOUNTER 2017-09-24 22:31 | Inpatient (IN) ==
[2017-09-24] MEDS ORDERED: Ipratropium/Albuterol Neb 3 ML IH ONE (22:38)
[2017-09-24] MEDS ORDERED: methylPREDNISolone 125 MG/2 ML VIAL IVP ONE (22:40)
[2017-09-24 23:18] LABS: Basophils # 0.1 K/mcL (0.0-0.2); Basophils % 0.7 %; Eosinophils % 7.6 %; Hematocrit 40.1 % (37.5-50.1); Hemoglobin 12.8 g/dL (12.9-16.9); Immature Granulocytes % 2.2 % (0-4); Lymphocytes # 1.3 K/mcL (0.6-4.6); Lymphocytes % 10.1 %; Mean Corpuscular HGB Conc 31.9 g/dL (31.6-35.5); Mean Corpuscular Hemoglobin 29.7 pg (28.0-33.3); Mean Platelet Volume 11.2 fL (9.4-12.4); Monocytes # 1.2 K/mcL (0.0-1.3); Monocytes % 9.2 %; Neutrophils # 9.3 K/mcL (1.6-8.9); Platelet Count 190 K/mcL (140-400); Red Blood Count 4.31 M/mcL (4.19-5.50); Segmented Neutrophils % 70.2 %
[2017-09-24 23:27] LABS: Bilirubin,Urine Negative (Negative); Blood,Urine Trace (Negative); Clarity,Urine Clear (Clear); Color,Urine Yellow (Yellow); Glucose,Urine (UA) Normal (Normal); Ketones,Urine Negative (Negative); Leukocyte Esterase,Urine Negative (Negative); Nitrite,Urine Negative (Negative); PH,Urine 6.5 pH Units (5.0-8.0); Protein,Urine Negative (Neg-Trace); Specific Gravity,Urine 1.015 (1.010-1.025); Urobilinogen,Urine Normal (Normal)
[2017-09-24 23:30] LABS: Bacteria,Urine None Seen per hpf (None-Few); Hyaline Casts,Urine None Seen per lpf (None-Few); RBC,Urine 0-3 per hpf (0-3); Squamous Epithelial Cell,Urine Few per lpf (None-Few)
[2017-09-24 23:32] LABS: Calcium 9.9 mg/dL (8.6-10.8); Potassium 4.6 mEq/L (3.5-4.5)
--- NOTE | 2017-09-24 23:44 | Emergency Department Note ---
Disposition Clinical Impression: Acute and chronic respiratory failure ([id number]) Disposition: Admitted As Inpatient Condition: Fair Time of Disposition: 04:39 SOB HPI - General Chief Complaint: ED Shortness of Breath/Dyspnea Stated Complaint: HERNANDO Time Seen by Provider: 09/24/17 22:37 Source: family, EMS Limitations: altered mental status Nursing Notes Reviewed: Yes Vital Signs Reviewed: Yes - History of Present Illness Mr. Urban, an 81 old male, presents from home via EMS for altered mentation and hypoxia. Patient was discharged from this facility yesterday and family was led to believe he would be discharged with oxygen. At home, he was saturating while awake at 86%. Patient's daughter noted that, while asleep, his O2 sat would drop. His mentation would wane and he became more confused with slurring of speech. She also notes a 30 sec period of apnea. She understandably became very concerned and called the squad. She also notes patient was not picking up his left foot as much is normal and has a productive cough producing yellow sputum. Patient is DNR-CC. PMH: Chronic kidney disease stage IV, chronic respiratory failure, COPD, diastolic congestive heart failure, diabetes type 2, obesity, dementia Platelet: Aspirin Anticoagulant: None ROS: Positive: Confusion, slurred speech, hypoxia, and productive cough Negative: Fever, chills ECHO from 06/2017 showed ejection fraction of 65% and aortic sclerosis, and mild left ventricular diastolic dysfunction. - Related Data Home Medications Medication Instructions Recorded Confirmed Atenolol [Tenormin] 25 mg PO DAILY 02/28/17 09/20/17 Calcitriol [Rocaltrol] 0.25 mcg PO DAILY 02/28/17 09/20/17 Glimepiride [Amaryl] 2 mg PO DAILY 02/28/17 09/20/17 Insulin Glargine,Hum.rec.anlog 38 unit SQ DAILY 02/28/17 09/20/17 [Lantus Solostar] SitaGLIPtin [Januvia] 50 mg PO DAILY 02/28/17 09/20/17 Aspirin 81 mg PO DAILY 09/20/17 09/20/17 Bimatoprost [Lumigan] 1 drop BOTH EYES QPM 09/20/17 09/20/17 Previous Rx's Medication Instructions Recorded Albuterol Sulfate [Ventolin Hfa] 18 gm IH Q4H PRN #1 hfa.aer.ad 03/04/17 Allopurinol [Zyloprim 100 MG] 200 mg PO DAILY #60 tablet 03/13/17 Ferrous Sulfate 325 mg PO DAILY #30 tablet 03/13/17 Furosemide [Lasix] 40 mg PO QAM PRN #30 tablet 09/23/17 Ipratropium/Albuterol Neb [Duoneb] 3 ml IH [id number] PRN #30 inhsol 09/23/17 Lisinopril-HCTZ 20-12.5 [Prinzide 1 each PO DAILY #30 tablet 09/23/17 20-12.5] Allergies Allergy/AdvReac Type Severity Reaction Status Date / Time No Known Allergies Allergy Verified 09/20/17 11:37 All systems ED: reviewed and negative except as stated. Review of Systems: As Per HPI Past Medical History - Past Medical History Medical history: Reports: COPD, dementia, diabetes, hyperlipidemia, hypertension , renal disease, thyroid disease, other Psychiatric history: Reports: no psych history - Social History Smoking Status: Never smoker Smokeless Tobacco Status: No Alcohol use: Reports: none Drug use: Reports: none Physical Exam Vital Signs Reviewed General: Patient is alert, oriented to self and date of and location and season; not oriented to year, president. In acute respiratory distress using open mouth breathing, mild accessory muscle use. HEENT: No facial asymmetry. Head is normocephalic and atraumatic. PERRL, EOMI. oral mucosa moist. Trachea midline. Cardiovascular: Heart regular rate and rhythm without clicks, rubs, gallops, or murmurs. No JVD. PMI nondisplaced. Respiratory: Symmetric chest rise with poor respiratory effort. Bilateral breath sounds are clear without wheezing, crackles, or rhonchi. Abdomen: Bowel sounds present normoactive x-4 quadrants. Abdomen is soft, nondistended, and nontender. No organomegaly noted. Neuro: GCS 14 (E4, V4, M6) Sensation light touch intact. Psych: Patient's affect is appropriate for situation. - General Limitations: altered mental status General appearance: alert, in no apparent distress Course Course Narrative: Patient presents from home hypoxic. Per daughter bedside who is a medic and appropriate, patient had transient episode of confusion related to his hypoxia. He was discharged yesterday from this facility for acute exacerbation of COPD. There will believe that he will be discharged home with oxygen given his persistent hypoxia. He was not discharged home with oxygen. Home O2 sat was in the mid 80s and worse as he became confused. Daughter is also understand what concerned about his apnea. His lab work is consistent with his baseline. At minimum, patient will need to be admitted for acute hypoxic respiratory failure with the need for home oxygen at discharge. Because the ER is able to provide home oxygen, patient will need to be admitted for continued observation. Next I discussed the patient with the admitting hospitalist, Dr. Judd, who agrees to accept the patient. Vital Signs Temperature 98.6 F 09/24/17 22:33 Pulse Rate 76 09/24/17 22:33 Respiratory Rate 15 09/24/17 22:33 Blood Pressure 141/78 09/24/17 22:33 O2 Sat by Pulse Oximetry 96 09/24/17 22:33 Temperature 98.4 F 09/25/17 01:56 Pulse Rate 74 09/25/17 01:56 Respiratory Rate 18 09/25/17 01:56 Blood Pressure 133/72 09/25/17 01:56 O2 Sat by Pulse Oximetry 94 09/25/17 01:56 Oxygen Delivery Oxygen Delivery Nasal Cannula Shortness of Breath/Dyspnea - Lab Data Lab results reviewed: Yes I reviewed the patient's lab results. Result diagrams: 09/25/17 03:06 09/25/17 03:06 Lab Results 09/24/17 09/24/17 09/24/17 Range/Units 23:03 23:03 23:03 WBC 13.3 H (4.3-11.1) K/mcL RBC 4.31 (4.19-5.50) M/mcL Hgb 12.8 L D (12.9-16.9) g/dL Hct 40.1 (37.5-50.1) % MCV 93.0 (83.0-100.0) fL MCH 29.7 (28.0-33.3) pg MCHC 31.9 (31.6-35.5) g/dL RDW 14.0 (11.5-14.5) % Plt Count 190 (140-400) K/mcL MPV 11.2 (9.4-12.4) fL Immature Gran % 2.2 (0-4) % Seg Neutrophils % 70.2 % Lymphocytes % 10.1 % Monocytes % 9.2 % Eosinophils % 7.6 % Basophils % 0.7 % Neutrophils # 9.3 H (1.6-8.9) K/mcL Lymphocytes # 1.3 (0.6-4.6) K/mcL Monocytes # 1.2 (0.0-1.3) K/mcL Eosinophils # 1.0 H (0.0-0.6) K/mcL Basophils # 0.1 (0.0-0.2) K/mcL Sodium 139 (136-145) mEq/L Potassium 4.6 H (3.5-4.5) mEq/L Chloride 97 L (98-109) mEq/L Carbon Dioxide 33 H (19-29) mEq/L BUN 47 H (8-26) mg/dL Creatinine 2.29 H (0.72-1.25) mg/dL Est GFR ( Amer) 33 L (> 60) Est GFR (Non-Af Amer) 27 L (> 60) BUN/Creatinine Ratio 21 (6-26) Glucose 215 H (70-99) mg/dL Calculated Osmolality 307 H (280-300) Lactic Acid 1.1 (0.5-2.2) mmol/L Calcium 9.9 (8.6-10.8) mg/dL Troponin I (0-0.03) ng/mL B-Natriuretic Peptide (0-100) pg/mL Urine Color (Yellow) Urine Clarity (Clear) Urine pH (5.0-8.0) pH Units Ur Specific [place] (1.010-1.025) Urine Protein (Neg-Trace) mg/dL Urine Glucose (UA) (Normal) mg/dL Urine Ketones (Negative) mg/dL Urine Blood (Negative) Urine Nitrite (Negative) Urine Bilirubin (Negative) Urine Urobilinogen (Normal) mg/dL Ur Leukocyte Esterase (Negative) Urine Microscopic RBC (0-3) per hpf Urine Microscopic WBC (0-3) per hpf Ur Squamous Epith Cells (None-Few) per lpf Urine Bacteria (None-Few) per hpf Hyaline Casts (None-Few) per lpf Ur Culture Indicated? (NO) 09/24/17 09/24/17 09/24/17 Range/Units 23:03 23:03 23:18 WBC (4.3-11.1) K/mcL RBC (4.19-5.50) M/mcL Hgb (12.9-16.9) g/dL Hct (37.5-50.1) % MCV (83.0-100.0) fL MCH (28.0-33.3) pg MCHC (31.6-35.5) g/dL RDW (11.5-14.5) % Plt Count (140-400) K/mcL MPV (9.4-12.4) fL Immature Gran % (0-4) % Seg Neutrophils % % Lymphocytes % % Monocytes % % Eosinophils % % Basophils % % Neutrophils # (1.6-8.9) K/mcL Lymphocytes # (0.6-4.6) K/mcL Monocytes # (0.0-1.3) K/mcL Eosinophils # (0.0-0.6) K/mcL Basophils # (0.0-0.2) K/mcL Sodium (136-145) mEq/L Potassium (3.5-4.5) mEq/L Chloride (98-109) mEq/L Carbon Dioxide (19-29) mEq/L BUN (8-26) mg/dL Creatinine (0.72-1.25) mg/dL Est GFR ( Amer) (> 60) Est GFR (Non-Af Amer) (> 60) BUN/Creatinine Ratio (6-26) Glucose (70-99) mg/dL Calculated Osmolality (280-300) Lactic Acid (0.5-2.2) mmol/L Calcium (8.6-10.8) mg/dL Troponin I 0.03 (0-0.03) ng/mL B-Natriuretic Peptide 26 (0-100) pg/mL Urine Color Yellow (Yellow) Urine Clarity Clear (Clear) Urine pH 6.5 (5.0-8.0) pH Units Ur Specific [place] 1.015 (1.010-1.025) Urine Protein Negative (Neg-Trace) mg/dL Urine Glucose (UA) Normal (Normal) mg/dL Urine Ketones Negative (Negative) mg/dL Urine Blood Trace H (Negative) Urine Nitrite Negative (Negative) Urine Bilirubin Negative (Negative) Urine Urobilinogen Normal (Normal) mg/dL Ur Leukocyte Esterase Negative (Negative) Urine Microscopic RBC 0-3 (0-3) per hpf Urine Microscopic WBC 3-5 H (0-3) per hpf Ur Squamous Epith Cells Few (None-Few) per lpf Urine Bacteria None Seen (None-Few) per hpf Hyaline Casts None Seen (None-Few) per lpf Ur Culture Indicated? NO (NO) - Radiology Data Radiology results reviewed: Yes I reviewed the patient's radiology results. - EKG Data EKG attestation: Yes I reviewed and interpreted this EKG. EKG results narrative: EKG dated 09/24/17 at 22:51 interpreted as sinus rhythm with rate of 72. Normal intervals. Left axis. Right bundle branch block. Nonspecific ST-T changes. Compared to previous dated 02/28/2017 showing no acute ischemic changes or comparison. Attestation Statement - Attestation Attestation: I, Tushar Mcfarlane MD, personally evaluated this patient and discussed their management with the resident physician. I reviewed the resident's note and agree with the documented findings, medical decision making, and plan of care. 81-year-old male presents to the emergency department with family complaining of hypoxia and apnea. Patient was just discharged from the hospital a little over 24 hours ago. He does not have home oxygen. He was hypoxic in the hospital per family. Family reports that his oxygen is been running low at home and since discharge from the hospital he has been more confused and disoriented and talking out of his head. Apparently tonight he also had an apneic episode for about 30 seconds. On examination patient is a well-developed well-nourished elderly male in no acute distress. He is drowsy but responds to verbal stimuli. There is no cyanosis or diaphoresis. Breath sounds are clear and equal bilaterally. Heart regular rate and rhythm. Abdomen is soft and nontender with normal bowel sounds. Labs reviewed. Chest x-ray negative. EKG shows a sinus rhythm with a right bundle-branch block. Heart rate 72. The hospitalist, Dr. Judd, was consulted and accepted admission of the patient.
--- NOTE | 2017-09-25 01:37 | Internal Med History&Physical ---
Date of Encounter: 09/25/17 Time of Encounter: 01:35 Assessment and Plan (1) Acute exacerbation of chronic obstructive airways disease Current visit: Yes Status: Acute - Pt discharged 2 days ago with CHF exacerbation - COPD exacerbation more likely given wheezing on exam, euvolemic status - Prednisone 40 Qday, Duonebs, Supplimental O2 - Consider O2 walk test in AM for home O2. - Palliative consult. (2) CKD stage 4 due to type 2 diabetes mellitus Current visit: Yes Status: Chronic - BUN/Cr of 47/2.29 - Appears to be at baseline from last visit 2 days ago. - Avoid nephrotoxic agents, monitor (3) Dementia Current visit: No Status: Chronic - Family reports worsening of mental status with confusion and disorientation - Possible etiologies include worsening of dementia vs hypercapnia vs hypoxia or combination. - Urine culture done thursday negative for growth. - Will monitor and correct respiratory status. Qualifiers: Dementia type: Alzheimer's disease Alzheimer's disease onset: unspecified onset Dementia behavioral disturbance: without behavioral disturbance Qualified Code(s): G30.9 - Alzheimer's disease, unspecified; F02.80 - Dementia in other diseases classified elsewhere without behavioral disturbance; F02.80 - Dementia in other diseases classified elsewhere without behavioral disturbance; F02.80 - Dementia in other diseases classified elsewhere without behavioral disturbance (4) Diabetes mellitus type 2 in obese Current visit: Yes Status: Chronic - insulin dependent - BS 215 in ED. - Last A1c in 05/16 of 6.5% - Mild SSI, basal insulin 30 units. (5) DVT prophylaxis Current visit: No Status: Acute - Heparin 5000 units subq Internal Medicine - H&P: HPI Chief complaint: SOB, AMS Admitted From: Emergency Dept Plans for Post Hospital Care: Home History of present illness: Mr. Urban is a 81 year old male with a PMHx of COPD, CHF, dementia who presents to ED with a complaint of increasing SOB and increased confusion. He was recently admitted on 09/20 for CHF exacerbation and discharged home with laureen hall in stable condition. Family, who is present at bedside, state that they believed he was supposed to be sent home with home O2, however he never received it. Per chart review, patient was tolerating room air during day of discharge. Family states that pt had improved during previous hospital admission, however they felt that his mental status had not returned to baseline. He reportedly was complaining of SOB at rest and has been somnolent while at home. He has not complained of any fevers, chills, dysuria, nausea, vomiting, chest pain. Family also noticed some difficulty walking today with left leg external rotation and possible weakness. In ED, pt was saturating in low-mid 80s on RA and was placed on 4L O2 with improvement. CXR did not reveal any acute processes. Labs significant for mildly elevated WBC of 13, CKD IV at baseline. Past Med Surg Social Fam HX - Past Medical History Medical history: COPD, dementia, diabetes, hyperlipidemia, hypertension, renal disease, thyroid disease, other Psychiatric history: no psych history - Social History Smoking Status: Never smoker Smokeless Tobacco Status: No Alcohol use: none Drug use: none - Family History Mother Living Status: Hx Family Endocrine Disorder: Yes (DM) Father Living Status: Hx Family Cardiac Disorders: Yes ( maker) Internal Medicine - H&P: Meds Atenolol [Tenormin] 25 mg PO DAILY 02/28/17 [History] Calcitriol [Rocaltrol] 0.25 mcg PO DAILY 02/28/17 [History] Glimepiride [Amaryl] 2 mg PO DAILY 02/28/17 [History] Insulin Glargine,Hum.rec.anlog [Lantus Solostar] 38 unit SQ DAILY 02/28/17 [ History] SitaGLIPtin [Januvia] 50 mg PO DAILY 02/28/17 [History] Albuterol Sulfate [Ventolin Hfa] 18 gm IH Q4H PRN #1 hfa.aer.ad 03/04/17 [Rx] Allopurinol [Zyloprim 100 MG] 200 mg PO DAILY #60 tablet 03/13/17 [Rx] Ferrous Sulfate 325 mg PO DAILY #30 tablet 03/13/17 [Rx] Aspirin 81 mg PO DAILY 09/20/17 [History] Bimatoprost [Lumigan] 1 drop BOTH EYES QPM 09/20/17 [History] Furosemide [Lasix] 40 mg PO QAM PRN #30 tablet 09/23/17 [Rx] Ipratropium/Albuterol Neb [Duoneb] 3 ml IH [id number] PRN #30 inhsol 09/23/17 [Rx] Lisinopril-HCTZ 20-12.5 [Prinzide 20-12.5] 1 each PO DAILY #30 tablet 09/23/17 [ Rx] 3 Allergy/AdvReac Type Severity Reaction Status Date / Time No Known Allergies Allergy Verified 09/20/17 11:37 ROS unobtainable: due to mental status All Systems PM: A 10-system review of systems was performed and is negative for pertinent findings except as documented above in the HPI. - Constitutional Constitutional: weakness, no chills, no fever(s) - Cardiovascular Cardiovascular ROS IM: dyspnea, dyspnea on exertion, no chest pain, no diaphoresis, no orthopnea, no syncope - Respiratory Respiratory: dyspnea, dyspnea on exertion, no cough - Gastrointestinal Gastrointestinal: no constipation, no diarrhea, no nausea, no vomiting - Genitourinary Genitourinary ROS male: no dysuria, no urinary incontinence - Neurological Neurological ROS: abnormal gait, behavioral changes, weakness, no dizziness, no numbness, no tingling, no vertigo, no other visual disturbances - Psychiatric Psychiatric: confusion - Constitutional Vitals: Temp Pulse Resp BP Pulse Ox 98.6 F 75 20 133/71 97 09/24/17 22:33 09/25/17 01:20 09/25/17 01:20 09/25/17 01:20 09/25/17 01:20 Exam: Gen.: Vitals noted. No acute distress. AAOx2 HEENT: PERRL oropharynx clear, Normocephalic, atraumatic, MMM Cardiac: RRR, no murmur, +S1/S2 Pulmonary: Diffuse mild wheezes, worse on right. Tolerating 4L O2, speaking in full sentances. equal chest expansion Abdomen: soft, nontender, BS noted, no guarding, distended. MSK: ROM intact, no joint swelling noted, muscle strength 4/5 throughout. Extremities: no BLE edema, nontender calf, no cyanosis or clubbing Neuro: A&Ox2, moves all extremities, no focal deficits. Sensation intact. CN II- XII intact bilaterally. NIH score 1 Psych: Appropriate mood and behavior Internal Med - H&P Results - Labs CBC & Chem 7: 09/24/17 23:03 09/24/17 23:03 Labs: Short CBC 09/24/17 Range/Units 23:03 WBC 13.3 H (4.3-11.1) K/mcL Hgb 12.8 L D (12.9-16.9) g/dL Hct 40.1 (37.5-50.1) % Plt Count 190 (140-400) K/mcL Neutrophils # 9.3 H (1.6-8.9) K/mcL BMP 09/24/17 23:03 Sodium 139 Potassium 4.6 H Chloride 97 L Carbon Dioxide 33 H BUN 47 H Creatinine 2.29 H Glucose 215 H Calcium 9.9 Cardiac Enzymes 09/24/17 Range/Units 23:03 Troponin I 0.03 (0-0.03) ng/mL Urine 09/24/17 Range/Units 23:18 Urine Color Yellow (Yellow) Urine Clarity Clear (Clear) Urine pH 6.5 (5.0-8.0) pH Units Ur Specific [place] 1.015 (1.010-1.025) Urine Protein Negative (Neg-Trace) mg/dL Urine Glucose (UA) Normal (Normal) mg/dL - Impressions ITS Impressions Chest X-Ray 09/24/17 22:39 IMPRESSION: No acute abnormality detected. D/ / Chirag Bailey MD / Chirag Bailey MD Interpreting Provider: Chirag Bailey MD
[2017-09-25] MEDS ORDERED: Acetaminophen 325 MG TABLET PO PRN (01:45)
[2017-09-25] MEDS ORDERED: Albuterol 2.5 MG/3 ML NEBULIZER IH PRN (01:45)
[2017-09-25] MEDS ORDERED: Ondansetron 4 MG/2 ML VIAL IVP PRN (01:45)
[2017-09-25] MEDS ORDERED: *HR* HYDROcodone/Acet 5/325 mg TABLET PO PRN (01:45)
[2017-09-25] MEDS ORDERED: Naloxone 0.4 MG/ML INJ IVP PRN (01:45)
[2017-09-25] MEDS ORDERED: *HR* Dextrose 50 % in Water (Syg) 50 ML SYRINGE IVP PRN (02:11)
[2017-09-25] MEDS ORDERED: D5% in Water 1,000 ML IVC PRN (02:11)
[2017-09-25] MEDS ORDERED: Dextrose Gel 15 GM PO PRN ×2 (02:11)
[2017-09-25] MEDS ORDERED: Furosemide 20 MG/2 ML VIAL IVP ONE (02:48)
--- NOTE | 2017-09-25 02:59 | Event Note ---
Date of Encounter: 09/25/17 Time of Encounter: 02:58 Patient seen and examined with regional medical director. CHF and copd exacerbation. Observation admission
[2017-09-25 03:34] LABS: Basophils # 0.1 K/mcL (0.0-0.2); Basophils % 0.6 %; Eosinophils # 0.1 K/mcL (0.0-0.6); Eosinophils % 0.8 %; Hemoglobin 12.2 g/dL (12.9-16.9); Immature Granulocytes % 2.3 % (0-4); Lymphocytes # 0.8 K/mcL (0.6-4.6); Lymphocytes % 5.3 %; Mean Corpuscular HGB Conc 31.3 g/dL (31.6-35.5); Mean Corpuscular Hemoglobin 29.3 pg (28.0-33.3); Mean Corpuscular Volume 93.5 fL (83.0-100.0); Monocytes # 0.3 K/mcL (0.0-1.3); Neutrophils # 12.7 K/mcL (1.6-8.9); Platelet Count 186 K/mcL (140-400); Red Blood Count 4.17 M/mcL (4.19-5.50); Red Cell Distribution Width 13.9 % (11.5-14.5)
[2017-09-25 03:48] LABS: Calcium 9.4 mg/dL (8.6-10.8); Potassium 4.6 mEq/L (3.5-4.5)
[2017-09-25] MEDS: Ipratropium/Albuterol Neb 3 ML IH SCH ×4 (04:42→23:57)
[2017-09-25] MEDS: *HR* Heparin 5,000 UNIT/ML VIAL SQ SCH ×2 (06:17→17:35)
--- NOTE | 2017-09-25 09:19 | Palliative - Consult Note ---
<Chon Moran - Last Filed: 09/25/17 09:14> Date of Encounter: 09/25/17 Time of Encounter: 09:14 - Assessment and Plan (1) Goals of care, counseling/discussion Current Visit: Yes Status: Acute Assessment and plan: DNR-CC POA daughter Advanced directives on file Daughter concerned about patient needing O2 at home and that was reason he became confused, sob States patient does not want dialysis in the future if his kidney function declines Patient has large body habitus, Sleep apnea may contribute to confusion as well. -daughter states patient would not be able to tolerate CPAP and BIPAP Patient COPD and CHF currently controlled. CKD IV is stable. -he does not have terminal diagnosis -would not qualify for hospice. (2) Acute exacerbation of chronic obstructive airways disease Current Visit: Yes Status: Acute Assessment and plan: 2nd to copd eacerbation lung exam shows b/l LE rales as well on prednisone, duonebs, and supplemental O2 will need 6m walk test (3) Dementia Current Visit: Yes Status: Chronic Assessment and plan: underlying Alzheimer's progression of disease can contribute to worsening confusion but may also be due to hypoxemia, hypercapnia (no abg done to prove this) Family reports patient sleeps a lot. It would benefit patients confusion to reorient to day night cycle. Not started on any new medications not on donepazil or memantine patient is alert to self, place but not time or situation able to recognize family member in room. family states currently this is his usual mental state. Qualifiers: Dementia type: Alzheimer's disease Alzheimer's disease onset: unspecified onset Dementia behavioral disturbance: without behavioral disturbance Qualified Code(s): G30.9 - Alzheimer's disease, unspecified; F02.80 - Dementia in other diseases classified elsewhere without behavioral disturbance; F02.80 - Dementia in other diseases classified elsewhere without behavioral disturbance; F02.80 - Dementia in other diseases classified elsewhere without behavioral disturbance (4) CKD stage 3 due to type 2 diabetes mellitus Current Visit: Yes Status: Acute Assessment and plan: stable CKD IV not in renal failure as per primary (5) CHF (congestive heart failure) Current Visit: Yes Status: Acute Assessment and plan: EF 65% aortic sclerosis heart exam: 2/6 systolic murmur right sternal border minor rales on exam b/l patient not in respiratory distress trace LE edema management as per primary team. Qualifiers: Congestive heart failure type: diastolic Congestive heart failure chronicity: chronic Qualified Code(s): I50.32 - Chronic diastolic (congestive ) heart failure Palliative-CN HPI - Data of Consult Consult date: 09/25/17 Requesting Physician: Kezia Tang CNP Primary Care Provider: Kranthi aWller MD - Consult Narrative Reason for consult: Palliative care History of present illness: Mr. Urban is a 81 year old male presents with sob and worsening confusion. Patient was recently discharged from [facility] for CHF exacerbation. Family stated that he was supposed to be discharged with home oxygen however this never happened. At home he was hypoxemic with us. 2 in the 80s. Patient was increasingly somnolent, and had worsening confusion compared to baseline. At baseline patient has a subacute dementia, able to eat and ambulate with walker on his own. He is able to recognize family members. Patient's daughter who is also POA stated the patient has been known to from reality, meaning he thought he is traveling everywhere. They also state that he has increased productive sputum that is thick, yellow. Patient is DNR CC. During the encounter with him today he is alert and oriented to self, place but not to time or situation. He is comfortably sitting up in bed eyes open eating breakfast without assistance. He is on 3L O2 and saturating 94%. CC: Kezia Tang CNP Past Med Surg Social Fam HX - Past Medical History Medical history: COPD, dementia, diabetes, hyperlipidemia, hypertension, renal disease, thyroid disease, other Psychiatric history: no psych history - Social History Smoking Status: Never smoker Smokeless Tobacco Status: No Alcohol use: none Drug use: none - Family History Mother Living Status: Hx Family Endocrine Disorder: Yes (DM) Father Living Status: Hx Family Cardiac Disorders: Yes ( maker) Medications and Allergies Atenolol [Tenormin] 25 mg PO DAILY 02/28/17 [History] Calcitriol [Rocaltrol] 0.25 mcg PO DAILY 02/28/17 [History] Glimepiride [Amaryl] 2 mg PO DAILY 02/28/17 [History] Insulin Glargine,Hum.rec.anlog [Lantus Solostar] 38 unit SQ DAILY 02/28/17 [ History] Albuterol Sulfate [Ventolin Hfa] 18 gm IH Q4H PRN #1 hfa.aer.ad 03/04/17 [Rx] Allopurinol [Zyloprim 100 MG] 200 mg PO DAILY #60 tablet 03/13/17 [Rx] Ferrous Sulfate 325 mg PO DAILY #30 tablet 03/13/17 [Rx] Aspirin 81 mg PO DAILY 09/20/17 [History] Bimatoprost [Lumigan] 1 drop BOTH EYES QPM 09/20/17 [History] Furosemide [Lasix] 40 mg PO QAM PRN #30 tablet 09/23/17 [Rx] Ipratropium/Albuterol Neb [Duoneb] 3 ml IH [id number] PRN #30 inhsol 09/23/17 [Rx] Lisinopril-HCTZ 20-12.5 [Prinzide 20-12.5] 1 each PO DAILY #30 tablet 09/23/17 [ Rx] SitaGLIPtin [Januvia] 100 mg PO DAILY 09/25/17 [History] 3 Allergy/AdvReac Type Severity Reaction Status Date / Time No Known Allergies Allergy Verified 09/20/17 11:37 Review of systems: Constitutional: Denies fever, chills HEENT: Denies headache, vision changes, neck pain, sore throat, rhinorrhea Heart: Denies chest pain palpitations Lungs: Reports SOB, prouctive yellow sputum. Abdomen: Denies abdominal pain nausea vomiting diarrhea Back: Denies back pain Kidney: Denies dysuria, hematuria Skin: warm and dry Extremities: Denies swelling, pain Neuro: Denies numbness, and tingling Palliative Care-Exam - Constitutional Vitals: Temp Pulse Resp BP Pulse Ox 97.8 F 69 14 114/65 95 09/25/17 08:25 09/25/17 08:25 09/25/17 08:25 09/25/17 08:25 09/25/17 08:25 - Other Additional findings: General: without distress HEENT: Head atraumatic, normocephalic, EOMI, PERRL, neck nontender to palpation , absent lymphadenopathy, Moist Mucous Membranes, Heart: Regular rate and rhythm with no murmur Lungs: b/l basiar rales otherwise clear Abdomen: Soft nontender, nondistended positive bowel sounds. central obesity Skin: warm and dry Extremities: trace pedal edema, Neuro: alert and oriented x2 Vascular: Pedal and radial pulses 2 out of 4 Internal Medicine - CN: Reslt - Labs CBC & Chem 7: 09/25/17 03:06 09/25/17 03:06 Labs: Short CBC 09/25/17 Range/Units 03:06 WBC 14.3 H (4.3-11.1) K/mcL Hgb 12.2 L (12.9-16.9) g/dL Hct 39.0 (37.5-50.1) % Plt Count 186 (140-400) K/mcL Neutrophils # 12.7 H (1.6-8.9) K/mcL BMP 09/25/17 03:06 Sodium 138 Potassium 4.6 H Chloride 98 Carbon Dioxide 31 H BUN 48 H Creatinine 2.19 H Glucose 244 H Calcium 9.4 Consult Discharge Plan - Plan Referrals: Kranthi Waller MD [Primary Care Provider] - Palliative Quality Palliative Quality: Screen for Code Status: Yes, Screen for Goals of Care: Yes, Screen for Pain: Yes, If Pain Regimen Started, Initiate Bowel Regimen: NA, Screen for Nausea/Vomitting: Yes Code Status: 09/25/17 01:45 Resuscitation Status: Active [RES] Routine Comment: Resuscitation Status: DNR-Comfort Care <Rigo Chavez - Last Filed: 09/25/17 10:59> Date of Encounter: 09/25/17 Palliative-CN HPI - Data of Consult Requesting Physician: Kezia Tang CNP Primary Care Provider: Kranthi Waller MD - Consult Narrative History of present illness: Mr. Urban is a 81 year old male CC: Kezia Tang CNP Palliative Care-Exam - Constitutional Vitals: Temp Pulse Resp BP Pulse Ox 98.4 F 77 16 136/71 95 09/25/17 10:47 09/25/17 10:47 09/25/17 10:47 09/25/17 10:47 09/25/17 10:47 Internal Medicine - CN: Reslt - Labs CBC & Chem 7: 09/25/17 03:06 09/25/17 03:06 Labs: Short CBC 09/25/17 Range/Units 03:06 WBC 14.3 H (4.3-11.1) K/mcL Hgb 12.2 L (12.9-16.9) g/dL Hct 39.0 (37.5-50.1) % Plt Count 186 (140-400) K/mcL Neutrophils # 12.7 H (1.6-8.9) K/mcL BMP 09/25/17 03:06 Sodium 138 Potassium 4.6 H Chloride 98 Carbon Dioxide 31 H BUN 48 H Creatinine 2.19 H Glucose 244 H Calcium 9.4 - Attending Attestation I examined this patient and my medical decision-making was reviewed with the Resident Physician. I agree with the documented findings, disposition and treatment plan as described except to the extent set forth below. pt does not currently meeting criteria for hospice, pt would benifit from home health and probably O2 sw is working on that as palliative was consulted re hospice we will sign off please reconsult if we can help in any way Palliative Quality Code Status: 09/25/17 01:45 Resuscitation Status: Active [RES] Routine Comment: Resuscitation Status: DNR-Comfort Care
[2017-09-25] MEDS: Insulin LISPRO 300 UNITS/3 ML VIAL SQ SCH ×3 (09:29→17:35)
[2017-09-25] MEDS: Furosemide 20 MG/2 ML VIAL IVP SCH ×2 (09:29→17:35)
[2017-09-25] MEDS: Insulin DETEMIR 100 UNIT/ML X5UNITS SQ SCH ×2 (09:29→22:13)
[2017-09-25] MEDS: Aspirin 81 MG TAB.CHEW PO SCH (09:29)
[2017-09-25] MEDS: Lisinopril-HCTZ 20-12.5mg TABLET PO SCH (09:30)
[2017-09-25] MEDS: predniSONE 20 MG TABLET PO SCH (09:30)
[2017-09-25] MEDS: Azithromycin 250 MG TABLET PO SCH (09:30)
[2017-09-25 12:12] LABS: ABG Base Excess 7 mEq/L (-2 to 3); ABG HCO3 33 mEq/L (21-27); ABG Oxygen Saturation 94 % (95-98); ABG PCO2 56 mmHg (35-45); ABG PH 7.38 pH Units (7.32-7.45); ABG PO2 74 mmHg (85-104); ABG TCO2 35 mEq/L (20-26)
--- NOTE | 2017-09-25 16:54 | Internal Med Progress Note ---
Date of Encounter: 09/25/17 Time of Encounter: 11:40 - Assessment and plan (1) Acute exacerbation of chronic obstructive airways disease Current Visit: Yes Status: Acute Assessment and plan: Acute exacerbation of COPD - symptoms now improved Continue DuoNeb breathing treatment, Prednisone, O2 via nasal cannula Chest x-ray - no acute abnormality Troponin - 0.03 BNP - 26 EKG - sinus rhythm, RBBB, no acute ST-T changes ABG - pending Patient qualifies for home O2 Cardiac telemetry, continuous pulse ox, labs in a.m., monitor closely (2) CHF (congestive heart failure) Current Visit: Yes Status: Chronic Assessment and plan: Diastolic CHF LVEF 65% - not in exacerbation ECHO from 06/2017 showed ejection fraction of 65% and aortic sclerosis, and mild left ventricular diastolic dysfunction Continue IV Lasix, Lisinopril, Atenolol Continue daily weights and strict intake and output, fluid restriction, cardiac telemetry Qualifiers: Congestive heart failure type: diastolic Congestive heart failure chronicity: chronic Qualified Code(s): I50.32 - Chronic diastolic (congestive ) heart failure (3) CKD stage 4 due to type 2 diabetes mellitus Current Visit: Yes Status: Chronic Assessment and plan: Chronic kidney disease stage IV - creatinine slightly higher than baseline Repeat labs in a.m., monitor closely Avoid nephrotoxic agents (4) Diabetes mellitus type 2 in obese Current Visit: Yes Status: Chronic Assessment and plan: Type 2 diabetes mellitus, insulin-dependent, hyperglycemia Continue Levemir, insulin sliding scale, glucose checks (5) Dementia Current Visit: Yes Status: Chronic Assessment and plan: 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 Seems to at baseline mental status Qualifiers: Dementia type: Alzheimer's disease Alzheimer's disease onset: unspecified onset Dementia behavioral disturbance: without behavioral disturbance Qualified Code(s): G30.9 - Alzheimer's disease, unspecified; F02.80 - Dementia in other diseases classified elsewhere without behavioral disturbance; F02.80 - Dementia in other diseases classified elsewhere without behavioral disturbance; F02.80 - Dementia in other diseases classified elsewhere without behavioral disturbance (6) DVT prophylaxis Current Visit: Yes Status: Acute Assessment and plan: Continue heparin subcutaneous - Time Spent With Patient 25 - 35 minutes - Subjective Interval history: Examined this morning. Patient is awake and alert. Not in any distress. Denies chest pain or shortness of breath. Patient does have moderate dementia and is confused at times. Patient was admitted last night for acute exacerbation of COPD. Patient seems to be doing better this morning. Hemodynamically stable. No fever. No other acute events or complaints. I discussed about the patient's condition with the daughter and son. They understood and agreed. Patient does qualify for home oxygen for continuous use. - Constitutional Vitals: Temp Pulse Resp BP Pulse Ox 98.3 F 80 16 118/63 93 09/25/17 15:38 09/25/17 15:38 09/25/17 15:55 09/25/17 15:38 09/25/17 15:55 General appearance: Present: cooperative, A&O X 2, pleasant, no acute distress, answers questions appropriately - Head Head exam: Present: atraumatic - Eye Eye exam: Present: EOMI - ENT ENT exam: Present: mucous membranes moist - Respiratory Respiratory exam: Present: rales (Mild bilateral basilar). Absent: accessory muscle use, rhonchi, wheezes, tachypnea - Cardiovascular Cardiovascular exam: Present: RRR, +S1, +S2 - GI/Abdominal GI/Abdominal exam: Present: soft (Obese). Absent: distended, firm, guarding, tenderness - Extremities Exam Extremities exam: Present: pedal edema (Mild bilateral edema), radial pulses palpable and symmetrical. Absent: calf tenderness, cyanotic - Neurological Exam Neurological exam: Present: alert, CN II-XII intact, no focal deficits. Absent : facial droop, speech deficit Additional comments: Patient able to verbalize and follows commands. Oriented to place and person but not to time. He does have baseline dementia. Internal Medicine: Result - Labs CBC & Chem 7: 09/25/17 03:06 09/25/17 03:06 Labs: Short CBC 09/25/17 Range/Units 03:06 WBC 14.3 H (4.3-11.1) K/mcL Hgb 12.2 L (12.9-16.9) g/dL Hct 39.0 (37.5-50.1) % Plt Count 186 (140-400) K/mcL Neutrophils # 12.7 H (1.6-8.9) K/mcL BMP 09/25/17 03:06 Sodium 138 Potassium 4.6 H Chloride 98 Carbon Dioxide 31 H BUN 48 H Creatinine 2.19 H Glucose 244 H Calcium 9.4 - ABG Interpretation ABG results: ABG ABG pH 7.38 pH Units (7.32-7.45) 09/25/17 12:09 ABG pCO2 56 mmHg (35-45) H 09/25/17 12:09 ABG pO2 74 mmHg (85-104) L 09/25/17 12:09 ABG O2 Saturation 94 % (95-98) L 09/25/17 12:09 Consult Discharge Plan - Plan Referrals: Kranthi Waller MD [Primary Care Provider] -
[2017-09-25] MEDS: Latanoprost 2.5 ML BOTTLE BOTH EYES SCH (17:35)
[2017-09-26 01:39] LABS: Basophils # 0.1 K/mcL (0.0-0.2); Basophils % 0.2 %; Hematocrit 36.2 % (37.5-50.1); Hemoglobin 11.8 g/dL (12.9-16.9); Immature Granulocytes % 1.6 % (0-4); Immature Platelets 6.3 % (1.1-6.1); Lymphocytes # 1.1 K/mcL (0.6-4.6); Lymphocytes % 4.9 %; Mean Corpuscular HGB Conc 32.6 g/dL (31.6-35.5); Mean Corpuscular Hemoglobin 29.9 pg (28.0-33.3); Mean Corpuscular Volume 91.6 fL (83.0-100.0); Mean Platelet Volume 11.7 fL (9.4-12.4); Monocytes # 1.2 K/mcL (0.0-1.3); Monocytes % 5.2 %; Neutrophils # 20.4 K/mcL (1.6-8.9); Platelet Count 206 K/mcL (140-400); Red Blood Count 3.95 M/mcL (4.19-5.50); Red Cell Distribution Width 13.6 % (11.5-14.5); Segmented Neutrophils % 88.1 %
[2017-09-26 01:54] LABS: Calcium 9.1 mg/dL (8.6-10.8); Potassium 4.5 mEq/L (3.5-4.5)
[2017-09-26] MEDS: Ipratropium/Albuterol Neb 3 ML IH SCH ×4 (03:33→22:15)
[2017-09-26 04:59] LABS: ABG Base Excess 7 mEq/L (-2 to 3); ABG HCO3 33 mEq/L (21-27); ABG Oxygen Saturation 91 % (95-98); ABG PCO2 54 mmHg (35-45); ABG PH 7.39 pH Units (7.32-7.45); ABG PO2 63 mmHg (85-104); ABG TCO2 35 mEq/L (20-26)
[2017-09-26] MEDS: *HR* Heparin 5,000 UNIT/ML VIAL SQ SCH ×2 (05:50→17:53)
[2017-09-26] MEDS: Azithromycin 250 MG TABLET PO SCH (08:16)
[2017-09-26] MEDS: predniSONE 20 MG TABLET PO SCH (08:16)
[2017-09-26] MEDS: Lisinopril-HCTZ 20-12.5mg TABLET PO SCH (08:16)
[2017-09-26] MEDS: Aspirin 81 MG TAB.CHEW PO SCH (08:16)
[2017-09-26] MEDS: Furosemide 20 MG/2 ML VIAL IVP SCH (08:17)
[2017-09-26] MEDS: Insulin LISPRO 300 UNITS/3 ML VIAL SQ SCH ×3 (08:17→17:55)
--- NOTE | 2017-09-26 10:21 | Internal Med Progress Note ---
Date of Encounter: 09/26/17 Time of Encounter: 07:40 - Assessment and plan (1) Acute exacerbation of chronic obstructive airways disease Current Visit: Yes Status: Acute Assessment and plan: Acute exacerbation of COPD - symptoms now improved - now oxygen dependent Continue DuoNeb breathing treatment, Prednisone, O2 via nasal cannula Chest x-ray - no acute abnormality Troponin - 0.03 BNP - 26 EKG - sinus rhythm, RBBB, no acute ST-T changes ABG - pending Patient qualifies for home O2 Cardiac telemetry, continuous pulse ox, labs in a.m., monitor closely (2) CKD stage 4 due to type 2 diabetes mellitus Current Visit: Yes Status: Chronic Assessment and plan: Acute kidney injury on Chronic kidney disease stage IV - creatinine slightly higher than baseline MARINA likely due to Lasix use and Lisinopril/HCTZ - hold these meds Repeat labs in a.m., monitor closely, nephrology consult if renal function worsens Avoid nephrotoxic agents (3) CHF (congestive heart failure) Current Visit: Yes Status: Chronic Assessment and plan: Diastolic CHF LVEF 65% - not in exacerbation ECHO from 06/2017 showed ejection fraction of 65% and aortic sclerosis, and mild left ventricular diastolic dysfunction Continue Atenolol Lasix and Lisinopril/HCTZ due to acute kidney injury Continue daily weights and strict intake and output, fluid restriction, cardiac telemetry Qualifiers: Congestive heart failure type: diastolic Congestive heart failure chronicity: chronic Qualified Code(s): I50.32 - Chronic diastolic (congestive ) heart failure (4) Diabetes mellitus type 2 in obese Current Visit: Yes Status: Chronic Assessment and plan: Type 2 diabetes mellitus, insulin-dependent, hyperglycemia Continue Levemir, insulin sliding scale, glucose checks (5) Dementia Current Visit: Yes Status: Chronic Assessment and plan: 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 Seems to at baseline mental status Qualifiers: Dementia type: Alzheimer's disease Alzheimer's disease onset: unspecified onset Dementia behavioral disturbance: without behavioral disturbance Qualified Code(s): G30.9 - Alzheimer's disease, unspecified; F02.80 - Dementia in other diseases classified elsewhere without behavioral disturbance; F02.80 - Dementia in other diseases classified elsewhere without behavioral disturbance; F02.80 - Dementia in other diseases classified elsewhere without behavioral disturbance (6) DVT prophylaxis Current Visit: Yes Status: Acute Assessment and plan: Continue heparin subcutaneous - Time Spent With Patient 25 - 35 minutes - Subjective Interval history: Examined this morning. Patient is awake and alert. Not in any distress. Denies chest pain or shortness of breath. Sitting up in chair. Tolerating oral diet. Patient does have moderate dementia and is confused at times. Patient admitted for acute exacerbation of COPD. Seems to be improving. Hemodynamically stable. No fever. No other acute events or complaints. Patient does have acute kidney injury likely due to Lasix use and Lisinopril. The meds have been stopped. His white count has also bumped up. I discussed about the patient's condition with the daughter and son. They understood and agreed. Patient does qualify for home oxygen for continuous use. - Constitutional Vitals: Temp Pulse Resp BP Pulse Ox 97.9 F 69 16 113/63 94 09/26/17 07:51 09/26/17 07:51 09/26/17 07:51 09/26/17 07:51 09/26/17 07:51 General appearance: Present: cooperative, A&O X 2, pleasant, no acute distress, answers questions appropriately - Head Head exam: Present: atraumatic - Eye Eye exam: Present: EOMI - ENT ENT exam: Present: mucous membranes moist - Respiratory Respiratory exam: Present: wheezes (Mild bilateral). Absent: accessory muscle use, rales, rhonchi, tachypnea - Cardiovascular Cardiovascular exam: Present: RRR, +S1, +S2 - GI/Abdominal GI/Abdominal exam: Present: soft (Obese). Absent: distended, firm, guarding, tenderness - Extremities Exam Extremities exam: Present: pedal edema (Mild bilateral), radial pulses palpable and symmetrical. Absent: calf tenderness, cyanotic - Neurological Exam Neurological exam: Present: alert, CN II-XII intact, no focal deficits. Absent : facial droop, speech deficit Additional comments: Patient able to verbalize and follows commands. Oriented to place and person but not to time. He does have baseline dementia. Internal Medicine: Result - Labs CBC & Chem 7: 09/26/17 01:17 09/26/17 01:17 Labs: Short CBC 09/26/17 Range/Units 01:17 WBC 23.1 H D (4.3-11.1) K/mcL Hgb 11.8 L (12.9-16.9) g/dL Hct 36.2 L (37.5-50.1) % Plt Count 206 (140-400) K/mcL Neutrophils # 20.4 H (1.6-8.9) K/mcL BMP 09/26/17 01:17 Sodium 135 L Potassium 4.5 Chloride 95 L Carbon Dioxide 30 H BUN 71 H D Creatinine 2.86 H Glucose 298 H Calcium 9.1 - ABG Interpretation ABG results: ABG ABG pH 7.39 pH Units (7.32-7.45) 09/26/17 04:56 ABG pCO2 54 mmHg (35-45) H 09/26/17 04:56 ABG pO2 63 mmHg (85-104) L 09/26/17 04:56 ABG O2 Saturation 91 % (95-98) L 09/26/17 04:56 Consult Discharge Plan - Plan Referrals: Kranthi Waller MD [Primary Care Provider] -
[2017-09-26] MEDS: cefTRIAXone 1,000 MG in Water for inj. (sterile) 10 ML IVP SCH (12:28)
[2017-09-26] MEDS: Insulin DETEMIR 100 UNIT/ML X5UNITS SQ SCH ×2 (12:29→20:34)
[2017-09-26] MEDS: Latanoprost 2.5 ML BOTTLE BOTH EYES SCH (17:54)
[2017-09-26] MEDS: 0.9 % Sodium Chloride 1,000 ML IVC SCH (17:55)
[2017-09-27] MEDS: Ipratropium/Albuterol Neb 3 ML IH SCH ×4 (05:08→23:01)
[2017-09-27 05:26] LABS: ABG Base Excess 5 mEq/L (-2 to 3); ABG HCO3 31 mEq/L (21-27); ABG Oxygen Saturation 97 % (95-98); ABG PCO2 51 mmHg (35-45); ABG PO2 91 mmHg (85-104); ABG TCO2 33 mEq/L (20-26)
[2017-09-27] MEDS: *HR* Heparin 5,000 UNIT/ML VIAL SQ SCH ×2 (05:27→18:20)
[2017-09-27 05:31] LABS: Basophils % 0.2 %; Eosinophils % 0.2 %; Hematocrit 35.6 % (37.5-50.1); Hemoglobin 11.4 g/dL (12.9-16.9); Immature Granulocytes % 1.5 % (0-4); Lymphocytes # 1.4 K/mcL (0.6-4.6); Lymphocytes % 8.4 %; Mean Corpuscular Hemoglobin 29.8 pg (28.0-33.3); Mean Platelet Volume 11.9 fL (9.4-12.4); Monocytes # 1.2 K/mcL (0.0-1.3); Monocytes % 7.3 %; Platelet Count 202 K/mcL (140-400); Red Blood Count 3.83 M/mcL (4.19-5.50); Red Cell Distribution Width 13.7 % (11.5-14.5); Segmented Neutrophils % 82.4 %
[2017-09-27 06:02] LABS: Calcium 8.7 mg/dL (8.6-10.8)
[2017-09-27] MEDS: predniSONE 20 MG TABLET PO SCH (09:13)
[2017-09-27] MEDS: Azithromycin 250 MG TABLET PO SCH (09:13)
[2017-09-27] MEDS: Aspirin 81 MG TAB.CHEW PO SCH (09:13)
[2017-09-27] MEDS: 0.9 % Sodium Chloride 1,000 ML IVC SCH (09:14)
[2017-09-27] MEDS: Insulin LISPRO 300 UNITS/3 ML VIAL SQ SCH ×3 (09:14→18:20)
[2017-09-27] MEDS: Insulin DETEMIR 100 UNIT/ML X5UNITS SQ SCH ×2 (09:15→22:00)
--- NOTE | 2017-09-27 09:48 | Internal Med Progress Note ---
Date of Encounter: 09/27/17 Time of Encounter: 07:30 - Assessment and plan (1) Acute exacerbation of chronic obstructive airways disease Current Visit: Yes Status: Acute Assessment and plan: Acute exacerbation of COPD - symptoms now improved - now oxygen dependent - patient seems to be back to baseline Continue DuoNeb breathing treatment, Prednisone, O2 via nasal cannula Chest x-ray - no acute abnormality Troponin - 0.03 BNP - 26 EKG - sinus rhythm, RBBB, no acute ST-T changes ABG - hypercapnia and hypoxia have now improved Patient qualifies for home O2 Cardiac telemetry, continuous pulse ox, labs in a.m., monitor closely, anticipate discharge tomorrow (2) CKD stage 4 due to type 2 diabetes mellitus Current Visit: Yes Status: Chronic Assessment and plan: Acute kidney injury on Chronic kidney disease stage IV - creatinine seems to be back to baseline at this time - improved with gentle IV hydration MARINA likely due to Lasix use and Lisinopril/HCTZ - hold these meds Repeat labs in a.m., monitor closely, nephrology consult if renal function worsens Avoid nephrotoxic agents (3) CHF (congestive heart failure) Current Visit: Yes Status: Chronic Assessment and plan: Diastolic CHF LVEF 65% - not in exacerbation - patient does have bilateral leg edema - watch for fluid overload ECHO from 06/2017 showed ejection fraction of 65% and aortic sclerosis, and mild left ventricular diastolic dysfunction Continue Atenolol Hold Lasix and Lisinopril/HCTZ due to acute kidney injury Continue daily weights and strict intake and output, fluid restriction, cardiac telemetry Qualifiers: Congestive heart failure type: diastolic Congestive heart failure chronicity: chronic Qualified Code(s): I50.32 - Chronic diastolic (congestive ) heart failure (4) Diabetes mellitus type 2 in obese Current Visit: Yes Status: Chronic Assessment and plan: Type 2 diabetes mellitus, insulin-dependent, hyperglycemia Continue Levemir, insulin sliding scale, glucose checks (5) Dementia Current Visit: Yes Status: Chronic Assessment and plan: 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 Seems to at baseline mental status Supportive care if patient has acute delirium Qualifiers: Dementia type: Alzheimer's disease Alzheimer's disease onset: unspecified onset Dementia behavioral disturbance: without behavioral disturbance Qualified Code(s): G30.9 - Alzheimer's disease, unspecified; F02.80 - Dementia in other diseases classified elsewhere without behavioral disturbance; F02.80 - Dementia in other diseases classified elsewhere without behavioral disturbance; F02.80 - Dementia in other diseases classified elsewhere without behavioral disturbance (6) DVT prophylaxis Current Visit: Yes Status: Acute Assessment and plan: Continue Heparin subcutaneous - Time Spent With Patient 25 - 35 minutes - Subjective Interval history: Examined this morning. Patient is awake and alert. Not in any distress. Denies chest pain or shortness of breath. Sitting comfortably in bed. Tolerating oral diet. Patient does have moderate dementia and is confused at times, but able to answer questions appropriately. Hemodynamically stable. No fever. No other acute events or complaints. Patient admitted for acute exacerbation of COPD. Seems to be improving. Patient does have acute kidney injury likely due to Lasix use and Lisinopril. The meds have been stopped. Creatinine is now back to baseline and his white count has improved. I discussed about the patient's condition with the daughter and son in detail. They understood and agreed. Patient does qualify for home oxygen for continuous use. - Constitutional Vitals: Temp Pulse Resp BP Pulse Ox 98.0 F 65 16 147/65 97 09/27/17 07:51 09/27/17 07:51 09/27/17 07:51 09/27/17 07:51 09/27/17 07:51 General appearance: Present: cooperative, A&O X 2, pleasant, no acute distress, answers questions appropriately - Head Head exam: Present: atraumatic - Eye Eye exam: Present: EOMI - ENT ENT exam: Present: mucous membranes moist - Respiratory Respiratory exam: Present: wheezes (Mild bilateral basilar). Absent: rales, rhonchi, tachypnea - Cardiovascular Cardiovascular exam: Present: RRR, +S1, +S2 - GI/Abdominal GI/Abdominal exam: Present: soft (Obese). Absent: distended, firm, guarding, tenderness - Extremities Exam Extremities exam: Present: pedal edema (Bilateral lower leg 2+ edema), radial pulses palpable and symmetrical. Absent: calf tenderness, cyanotic - Neurological Exam Neurological exam: Present: alert, CN II-XII intact, no focal deficits, speech deficit. Absent: facial droop Additional comments: Patient able to verbalize and follows commands. Oriented to place and person but not to time. He does have baseline dementia Internal Medicine: Result - Labs CBC & Chem 7: 09/27/17 04:50 09/27/17 04:50 Labs: Short CBC 09/27/17 Range/Units 04:50 WBC 17.0 H (4.3-11.1) K/mcL Hgb 11.4 L (12.9-16.9) g/dL Hct 35.6 L (37.5-50.1) % Plt Count 202 (140-400) K/mcL Neutrophils # 14.0 H (1.6-8.9) K/mcL BMP 09/27/17 04:50 Sodium 140 Potassium 4.0 Chloride 102 Carbon Dioxide 30 H BUN 69 H Creatinine 2.09 H Glucose 82 Calcium 8.7 - ABG Interpretation ABG results: ABG ABG pH 7.40 pH Units (7.32-7.45) 09/27/17 05:20 ABG pCO2 51 mmHg (35-45) H 09/27/17 05:20 ABG pO2 91 mmHg (85-104) 09/27/17 05:20 ABG O2 Saturation 97 % (95-98) 09/27/17 05:20 Consult Discharge Plan - Plan Referrals: Kranthi Waller MD [Primary Care Provider] -
[2017-09-27] MEDS: cefTRIAXone 1,000 MG in Water for inj. (sterile) 10 ML IVP SCH (13:25)
[2017-09-27] MEDS: Latanoprost 2.5 ML BOTTLE BOTH EYES SCH (18:20)
[2017-09-28] MEDS: Ipratropium/Albuterol Neb 3 ML IH SCH ×3 (04:18→16:46)
[2017-09-28 05:13] LABS: Basophils % 0.3 %; Eosinophils % 0.1 %; Hematocrit 36.1 % (37.5-50.1); Hemoglobin 11.7 g/dL (12.9-16.9); Immature Granulocytes % 1.6 % (0-4); Lymphocytes # 1.6 K/mcL (0.6-4.6); Lymphocytes % 10.6 %; Mean Corpuscular HGB Conc 32.4 g/dL (31.6-35.5); Mean Corpuscular Hemoglobin 29.7 pg (28.0-33.3); Mean Corpuscular Volume 91.6 fL (83.0-100.0); Mean Platelet Volume 11.7 fL (9.4-12.4); Monocytes # 1.3 K/mcL (0.0-1.3); Monocytes % 8.8 %; Neutrophils # 11.6 K/mcL (1.6-8.9); Platelet Count 184 K/mcL (140-400); Red Blood Count 3.94 M/mcL (4.19-5.50); Red Cell Distribution Width 13.5 % (11.5-14.5); Segmented Neutrophils % 78.6 %
[2017-09-28 05:46] LABS: Calcium 8.8 mg/dL (8.6-10.8); Potassium 4.2 mEq/L (3.5-4.5)
[2017-09-28] MEDS: *HR* Heparin 5,000 UNIT/ML VIAL SQ SCH ×2 (05:49→17:53)
[2017-09-28] MEDS: Azithromycin 250 MG TABLET PO SCH (08:32)
[2017-09-28] MEDS: predniSONE 10 MG TABLET PO SCH (08:33)
[2017-09-28] MEDS: Insulin LISPRO 300 UNITS/3 ML VIAL SQ SCH ×3 (08:33→18:01)
[2017-09-28] MEDS: Aspirin 81 MG TAB.CHEW PO SCH (08:33)
[2017-09-28] MEDS: Insulin DETEMIR 100 UNIT/ML X5UNITS SQ SCH ×3 (09:45→21:03)
[2017-09-28] MEDS: cefTRIAXone 1,000 MG in Water for inj. (sterile) 10 ML IVP SCH (10:44)
--- NOTE | 2017-09-28 15:41 | Internal Med Progress Note ---
Date of Encounter: 09/28/17 Time of Encounter: 07:50 - Assessment and plan (1) Acute exacerbation of chronic obstructive airways disease Current Visit: Yes Status: Acute Assessment and plan: Acute exacerbation of COPD - symptoms now improved - now oxygen dependent - patient seems to be back to baseline Continue DuoNeb breathing treatment, Prednisone, O2 via nasal cannula Chest x-ray - no acute abnormality Troponin - 0.03 BNP - 26 EKG - sinus rhythm, RBBB, no acute ST-T changes ABG - hypercapnia and hypoxia have now improved Patient qualifies for home O2 Cardiac telemetry, continuous pulse ox, labs in a.m., monitor closely 09/28 - episodes of confusion are intermittent and more frequent today, discussed with Dr. Chavez and he has advised discharged home with home health palliative care, patient does not qualify for hospice care at this time, family is aware, discharge possibly in a.m., patient will require O2 via nasal cannula on discharge (2) CKD stage 4 due to type 2 diabetes mellitus Current Visit: Yes Status: Chronic Assessment and plan: Acute kidney injury on Chronic kidney disease stage IV - creatinine seems to be back to baseline at this time - improved with gentle IV hydration MARINA likely due to Lasix use and Lisinopril/HCTZ - hold these meds Creatinine - 1.63 Repeat labs in a.m., monitor closely, nephrology consult if renal function worsens Avoid nephrotoxic agents (3) CHF (congestive heart failure) Current Visit: Yes Status: Chronic Assessment and plan: Diastolic CHF LVEF 65% - not in exacerbation - patient does have bilateral leg edema - watch for fluid overload ECHO from 06/2017 showed ejection fraction of 65% and aortic sclerosis, and mild left ventricular diastolic dysfunction Continue Atenolol Hold Lasix and Lisinopril/HCTZ due to MARINA, now back to baseline Continue daily weights and strict intake and output, fluid restriction, cardiac telemetry Qualifiers: Congestive heart failure type: diastolic Congestive heart failure chronicity: chronic Qualified Code(s): I50.32 - Chronic diastolic (congestive ) heart failure (4) Diabetes mellitus type 2 in obese Current Visit: Yes Status: Chronic Assessment and plan: Type 2 diabetes mellitus, insulin-dependent, hyperglycemia Continue Levemir, insulin sliding scale, glucose checks (5) Dementia Current Visit: Yes Status: Chronic Assessment and plan: 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 - she does have intermittent episodes of confusion He has been at baseline mental status during most of his stay Supportive care if patient has acute delirium Qualifiers: Dementia type: Alzheimer's disease Alzheimer's disease onset: unspecified onset Dementia behavioral disturbance: without behavioral disturbance Qualified Code(s): G30.9 - Alzheimer's disease, unspecified; F02.80 - Dementia in other diseases classified elsewhere without behavioral disturbance; F02.80 - Dementia in other diseases classified elsewhere without behavioral disturbance; F02.80 - Dementia in other diseases classified elsewhere without behavioral disturbance (6) DVT prophylaxis Current Visit: Yes Status: Acute Assessment and plan: Continue Heparin subcutaneous - Time Spent With Patient 25 - 35 minutes - Subjective Interval history: Examined this morning. Patient is awake and alert. Not in any distress. Denies chest pain or shortness of breath. Sitting comfortably in bed. Tolerating oral diet. Patient does have moderate dementia and is confused at times, but able to answer questions appropriately. He does not have acute delirium at this time, but is at high risk. Hemodynamically stable. No fever. No other acute events or complaints. Patient admitted for acute exacerbation of COPD. Seems to be improving. Patient does have acute kidney injury likely due to Lasix use and Lisinopril. The meds have been stopped. Creatinine is now back to baseline and his white count has improved. I discussed about the patient's condition with the daughter and son in detail. They understood and agreed. Patient does qualify for home oxygen for continuous use. Palliative care has also discussed with the patient's family. He does not qualify for home hospice care at this time. - Constitutional Vitals: Temp Pulse Resp BP Pulse Ox 97.9 F 87 14 155/71 95 09/28/17 12:02 09/28/17 12:02 09/28/17 12:02 09/28/17 12:02 09/28/17 12:02 General appearance: Present: cooperative, A&O X 2, pleasant, no acute distress, answers questions appropriately - Head Head exam: Present: atraumatic - Eye Eye exam: Present: EOMI - ENT ENT exam: Present: mucous membranes moist - Respiratory Respiratory exam: Present: CTAB. Absent: rales, rhonchi, wheezes, tachypnea - Cardiovascular Cardiovascular exam: Present: RRR, +S1, +S2 - GI/Abdominal GI/Abdominal exam: Present: soft (Obese), no peritoneal signs. Absent: distended, firm, guarding, tenderness - Extremities Exam Extremities exam: Present: pedal edema (Bilateral lower leg 2+ edema), radial pulses palpable and symmetrical. Absent: calf tenderness, cyanotic - Neurological Exam Neurological exam: Present: alert, CN II-XII intact, no focal deficits. Absent : facial droop, speech deficit Additional comments: Patient able to verbalize and follows commands. Oriented to place and person but not to time. He does have baseline dementia. Does have episodes of intermittent confusion. No agitation. Internal Medicine: Result - Labs CBC & Chem 7: 09/28/17 04:36 09/28/17 04:36 Labs: Short CBC 09/28/17 Range/Units 04:36 WBC 14.7 H (4.3-11.1) K/mcL Hgb 11.7 L (12.9-16.9) g/dL Hct 36.1 L (37.5-50.1) % Plt Count 184 (140-400) K/mcL Neutrophils # 11.6 H (1.6-8.9) K/mcL BMP 09/28/17 04:36 Sodium 142 Potassium 4.2 Chloride 103 Carbon Dioxide 31 H BUN 55 H Creatinine 1.63 H Glucose 156 H Calcium 8.8 - ABG Interpretation ABG results: ABG ABG pH 7.40 pH Units (7.32-7.45) 09/27/17 05:20 ABG pCO2 51 mmHg (35-45) H 09/27/17 05:20 ABG pO2 91 mmHg (85-104) 09/27/17 05:20 ABG O2 Saturation 97 % (95-98) 09/27/17 05:20 Consult Discharge Plan - Plan Referrals: Kranthi Waller MD [Primary Care Provider] -
[2017-09-28] MEDS: Latanoprost 2.5 ML BOTTLE BOTH EYES SCH (18:04)
[2017-09-28] MEDS ORDERED: Ipratropium/Albuterol Neb 3 ML IH PRN (18:41)
[2017-09-28] MEDS ORDERED: Melatonin 3 MG TABLET PO SCH (21:00)
[2017-09-29 03:07] LABS: Basophils % 0.4 %; Eosinophils # 0.2 K/mcL (0.0-0.6); Eosinophils % 1.7 %; Hematocrit 35.2 % (37.5-50.1); Hemoglobin 11.5 g/dL (12.9-16.9); Immature Granulocytes % 1.8 % (0-4); Lymphocytes # 1.9 K/mcL (0.6-4.6); Lymphocytes % 18.4 %; Mean Corpuscular HGB Conc 32.7 g/dL (31.6-35.5); Mean Corpuscular Hemoglobin 30.1 pg (28.0-33.3); Mean Corpuscular Volume 92.1 fL (83.0-100.0); Mean Platelet Volume 11.7 fL (9.4-12.4); Monocytes # 1.2 K/mcL (0.0-1.3); Monocytes % 11.7 %; Neutrophils # 6.8 K/mcL (1.6-8.9); Platelet Count 179 K/mcL (140-400); Red Blood Count 3.82 M/mcL (4.19-5.50); Red Cell Distribution Width 13.7 % (11.5-14.5)
[2017-09-29 03:22] LABS: Calcium 9.1 mg/dL (8.6-10.8); Potassium 4.2 mEq/L (3.5-4.5)
[2017-09-29] MEDS: *HR* Heparin 5,000 UNIT/ML VIAL SQ SCH (06:13)
[2017-09-29] MEDS: Insulin LISPRO 300 UNITS/3 ML VIAL SQ SCH ×2 (08:53→12:51)
[2017-09-29] MEDS: Aspirin 81 MG TAB.CHEW PO SCH (09:03)
[2017-09-29] MEDS: predniSONE 10 MG TABLET PO SCH (09:03)
[2017-09-29] MEDS: Azithromycin 250 MG TABLET PO SCH (09:03)
[2017-09-29] MEDS: Insulin DETEMIR 100 UNIT/ML X5UNITS SQ SCH (09:08)
[2017-09-29] MEDS: cefTRIAXone 1,000 MG in Water for inj. (sterile) 10 ML IVP SCH (12:50)
--- NOTE | 2017-09-29 14:02 | Discharge Summary ---
Date of Encounter: 09/29/17 Time of Encounter: 07:30 - Discharge Diagnosis (1) Acute exacerbation of chronic obstructive airways disease Priority: Primary Status: Acute Comments: Acute exacerbation of COPD - symptoms now improved - now oxygen dependent - patient seems to be back to baseline Continue DuoNeb breathing treatment, Prednisone, O2 via NC Chest x-ray - no acute abnormality Troponin - 0.03 BNP - 26 EKG - sinus rhythm, RBBB, no acute ST-T changes ABG - hypercapnia and hypoxia have now improved Patient now does not qualify for home O2 at this time, family has been given script for O2 Return if symptoms worsen, follow up with PCP 09/28 - episodes of confusion are intermittent and more frequent today, discussed with Dr. Chavez and he has advised discharged home with home health palliative care, patient does not qualify for hospice care at this time, family is aware, discharge possibly in a.m., patient will require O2 via nasal cannula on discharge 09/29 - patient is awake and alert, his confusion and acute delirium has improved. Sitting up comfortably in chair. Tolerating oral diet well. Ambulating with some assistance. Patient does not qualify for home oxygen at this time, but family has been given prescription for O2. CT head reviewed - no acute intracranial abnormality, stable moderate chronic white matter microvascular ischemic changes and multifocal remote lacunar infarcts in the bilateral basal ganglia and thalami. Patient seems to be back to baseline mental status and his creatinine is also back to baseline. (2) CKD stage 4 due to type 2 diabetes mellitus Priority: Primary Status: Chronic Comments: Acute kidney injury on Chronic kidney disease stage IV - creatinine seems to be back to baseline at this time - improved with gentle IV hydration MARINA likely due to Lasix use and Lisinopril/HCTZ - avoid use of Lisinopril/HCTZ Advice used Lasix 20 mg daily and 20 mg PRN Creatinine - 1.49 Avoid nephrotoxic agents (3) CHF (congestive heart failure) Priority: Secondary Status: Chronic Comments: Diastolic CHF LVEF 65% - not in exacerbation - patient does have bilateral leg edema - watch for fluid overload ECHO from 06/2017 showed ejection fraction of 65% and aortic sclerosis, and mild left ventricular diastolic dysfunction Continue Atenolol, continue Lasix 20 mg daily and 20 mg PRN shortness of breath or edema Continue daily weight and strict intake and output, fluid restriction of 1.5 L daily Qualifiers: Congestive heart failure type: diastolic Congestive heart failure chronicity: chronic Qualified Code(s): I50.32 - Chronic diastolic (congestive ) heart failure (4) Diabetes mellitus type 2 in obese Priority: Secondary Status: Chronic Comments: Type 2 diabetes mellitus, insulin-dependent, hyperglycemia Continue home dose of insulin (5) Dementia Priority: Primary Status: Chronic Comments: 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 - patient does have intermittent episodes of confusion He is currently at baseline mental status Supportive care if patient has acute delirium Qualifiers: Dementia type: Alzheimer's disease Alzheimer's disease onset: unspecified onset Dementia behavioral disturbance: without behavioral disturbance Qualified Code(s): G30.9 - Alzheimer's disease, unspecified; F02.80 - Dementia in other diseases classified elsewhere without behavioral disturbance; F02.80 - Dementia in other diseases classified elsewhere without behavioral disturbance; F02.80 - Dementia in other diseases classified elsewhere without behavioral disturbance - Discharge Medications Prescriptions: RX: Azithromycin [Zithromax] 500 mg PO DAILY 3 Days #3 tablet RX: predniSONE [PredniSONE] 10 mg PO DAILY #10 tablet RX: Simvastatin [Zocor] 10 mg PO HS #30 tablet Home Medications: RX: Atenolol [Tenormin] 25 mg PO DAILY 02/28/17 [History] RX: Calcitriol [Rocaltrol] 0.25 mcg PO DAILY 02/28/17 [History] RX: Glimepiride [Amaryl] 2 mg PO DAILY 02/28/17 [History] RX: Insulin Glargine,Hum.rec.anlog [Lantus Solostar] 38 unit SQ DAILY 02/28/17 [ History] RX: Albuterol Sulfate [Ventolin Hfa] 18 gm IH Q4H PRN #1 hfa.aer.ad 03/04/17 [Rx ] RX: Allopurinol [Zyloprim 100 MG] 200 mg PO DAILY #60 tablet 03/13/17 [Rx] RX: Ferrous Sulfate 325 mg PO DAILY #30 tablet 03/13/17 [Rx] RX: Aspirin 81 mg PO DAILY 09/20/17 [History] RX: Bimatoprost [Lumigan] 1 drop BOTH EYES QPM 09/20/17 [History] RX: Ipratropium/Albuterol Neb [Duoneb] 3 ml IH [id number] PRN #30 inhsol 09/23/17 [ Rx] RX: SitaGLIPtin [Januvia] 100 mg PO DAILY 09/25/17 [History] RX: Azithromycin [Zithromax] 500 mg PO DAILY 3 Days #3 tablet 09/29/17 [Rx] RX: Furosemide [Lasix] 40 mg PO QAM PRN #30 tablet 09/29/17 [Rx] RX: Melatonin 3 mg PO HS PRN #0 tablet 09/29/17 [Rx] RX: Simvastatin [Zocor] 10 mg PO HS #30 tablet 09/29/17 [Rx] RX: predniSONE [PredniSONE] 10 mg PO DAILY #10 tablet 09/29/17 [Rx] Allergies/Adverse Reactions: 3 Allergy/AdvReac Type Severity Reaction Status Date / Time No Known Allergies Allergy Verified 09/20/17 11:37 Procedures/tests Complete & Pending: Procedures Performed prior 72 hours Category Date Time Status CT head/brain wo con [CT] Stat Cat Scan 09/28/17 18:38 Completed Date of admission: 09/28/17 17:11 Primary care physician: Kranthi Waller MD Anticipated date of discharge: 09/29/17 - Patient Status Disposition: Home Health Service Condition: Fair Functional capacity at discharge: uses cane/walker Overall status at discharge: patient is progressing back to baseline - Discharge Instructions Instructions: Dementia (GEN), Weakness (GEN), COPD Exacerbation, 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 If you have congestive heart failure and your symptoms return, make an appointment with your physician. Medication List: Carry an up to date list of medications you are taking at all time. We have given you an updated medication list including any new medications that you have been prescribed. Please provide that list to your primary provider Symptoms: If your condition changes or you experience any of the following symptoms, notify your physician immediately: Unusual or worsening pain, fever, persistent nausea and vomiting, bleeding, increase in swelling (especially in your legs), sudden weight gain, extreme dizziness, chest pain, increased drainage or redness from a wound or incision. Go to the emergency department if you experience a problem with breathing. Weights: If you have a history of swelling or shortness of breath, weigh yourself daily and notify your physician if you have a weight gain of two or more pounds in one day or 5 or more pounds in a week. If you experience any of the warning signs for stroke: Sudden numbness or weakness of the face, arm or leg; especially on one side of the body, sudden confusion, trouble speaking or understanding, sudden trouble seeing in one or both eyes, sudden trouble walking, dizziness, loss of balance or coordination, sudden sever headache with no cause; Call 911 or go to the emergency room. Stroke is a medical emergency. Some risk factors for stroke: Age, cigarette smoking, diabetes, excessive alcohol consumption, family history , high blood pressure, overweight, physical inactivity, prior stroke, heart attack, diagnosis of carotid artery stenosis or other artery disease. If you smoke, STOP: Smoking or tobacco use significantly increases your risk of heart and lung disease. Your chance of disease greatly increases if you continue to smoke. For more information, call the [employer] quit line for smoking cessation QUIT-NOW ( ) - Diet and Activity Activity: as per physical therapy, increase activity as tolerated, resume usual activities as tolerated Diet: diabetic diet, low fat, low cholesterol, low salt diet Hospital course: Mr. Urban is a 81 year old male with past medical history of COPD, dementia, diabetes, hyperlipidemia, hypertension, renal disease and thyroid disease. He presented to the ED with complaints of shortness of breath. Patient was recently discharged after being treated for CHF exacerbation. Patient apparently had been having a progressive shortness of breath which is worse while laying flat. He was admitted for acute COPD exacerbation. Patient also complained of a nonproductive cough. Patient was started on DuoNeb breathing treatment, O2 and IV Lasix. Fluid restriction was maintained and patient was also on strict I's and O's and daily weights were recorded. Patient was on insulin sliding scale for diabetes. Patient was continued on atenolol and aspirin and lisinopril and HCTZ. Patient developed acute kidney injury likely due to Lasix use and lisinopril/HCTZ. These medications were on hold. He was started on IV normal saline and his creatinine is now back to baseline. Family has been advised to continue Lasix 20 mg daily in the morning and 20 mg as needed for chest pain or shortness of breath. His COPD exacerbation now improved. Patient did have episodes of acute delirium and confusion. At the time of discharge he seems to be back to baseline mental status. His shortness of breath has now resolved. He is oriented to place and person but not to time. Patient's family including daughter and son have been explained about this plan of care and condition in detail. They understood and agreed. No unanswered questions. They are aware of patient's poor overall prognosis. Palliative care has also evaluated the patient and advised home health/ palliative care at home. Patient does not offer hospice at this time. Patient is tolerating oral diet well and ambulating well with assistance. He had no other acute events or complications during his stay in the hospital. Patient is currently hemodynamically stable. Patient has been given a prescription for home oxygen for continuous use. Advised return if symptoms worsen. Follow-up with PCP. Patient and family do not want ECF placement. Avoid nephrotoxic agents. Continue home meds for diabetes and CHF and COPD. Patient is being discharged in a stable condition. - Time Spent with Patient Total time spent providing and/or coordinating discharge services: Greater than 30 minutes - Constitutional Vitals: Temp Pulse Resp BP Pulse Ox 98.0 F 62 18 134/72 96 09/29/17 10:52 09/29/17 10:52 09/29/17 10:52 09/29/17 10:52 09/29/17 10:52 General appearance: Present: cooperative, A&O X 2, pleasant, no acute distress, answers questions appropriately - Head Head exam: Present: atraumatic - Eye Eye exam: Present: EOMI - ENT ENT exam: Present: mucous membranes moist - Respiratory Respiratory exam: Present: CTAB. Absent: accessory muscle use, chest wall tenderness, rales, rhonchi, wheezes, tachypnea - Cardiovascular Cardiovascular exam: Present: RRR, +S1, +S2 - GI/Abdominal GI/Abdominal exam: Present: soft (Obese). Absent: distended, firm, guarding, tenderness - Extremities Exam Extremities exam: Present: pedal edema (Bilaterally 2+ edema), radial pulses palpable and symmetrical. Absent: calf tenderness, cyanotic - Neurological Exam Neurological exam: Present: alert, CN II-XII intact, no focal deficits. Absent : facial droop, speech deficit Additional comments: Patient able to verbalize and follows commands. Oriented to place and person but not to time. He does have baseline dementia. Insomnia Does have episodes of intermittent confusion. No agitation. No focal neurological deficits. - VTE Documentation of Mechanical Device: Graduated compression elastic hosiery
--- NOTE | 2017-09-29 14:13 | Physician Discharge Referral ---
Home Health/Hosp Referral Info Transfer to: Home Health Provider in Charge Post Discharge: PCP - Diagnosis (1) Acute exacerbation of chronic obstructive airways disease Priority: Primary Status: Acute (2) CKD stage 4 due to type 2 diabetes mellitus Priority: Primary Status: Chronic (3) CHF (congestive heart failure) Priority: Primary Status: Chronic (4) Diabetes mellitus type 2 in obese Priority: Secondary Status: Chronic (5) Dementia Priority: Primary Status: Chronic - Respiratory Orders Smoking Cessation: Smoking cessation has been advised. For more information, call the [place] [employer] Quit Line at 1-519-YNYO-NOW. - Diet/Nutrition Diet/Nutrition Orders: Cardiac - Activity Activity Orders: Ambulate, Walker - Services Needed Following services are medically necessary services: Nursing, Physical Therapy - Transfer Medications Prescriptions: Azithromycin [Zithromax] 500 mg PO DAILY 3 Days #3 tablet predniSONE [PredniSONE] 10 mg PO DAILY #10 tablet Simvastatin [Zocor] 10 mg PO HS #30 tablet Home Medications: Atenolol [Tenormin] 25 mg PO DAILY 02/28/17 [History] Calcitriol [Rocaltrol] 0.25 mcg PO DAILY 02/28/17 [History] Glimepiride [Amaryl] 2 mg PO DAILY 02/28/17 [History] Insulin Glargine,Hum.rec.anlog [Lantus Solostar] 38 unit SQ DAILY 02/28/17 [ History] Albuterol Sulfate [Ventolin Hfa] 18 gm IH Q4H PRN #1 hfa.aer.ad 03/04/17 [Rx] Allopurinol [Zyloprim 100 MG] 200 mg PO DAILY #60 tablet 03/13/17 [Rx] Ferrous Sulfate 325 mg PO DAILY #30 tablet 03/13/17 [Rx] Aspirin 81 mg PO DAILY 09/20/17 [History] Bimatoprost [Lumigan] 1 drop BOTH EYES QPM 09/20/17 [History] Ipratropium/Albuterol Neb [Duoneb] 3 ml IH [id number] PRN #30 inhsol 09/23/17 [Rx] SitaGLIPtin [Januvia] 100 mg PO DAILY 09/25/17 [History] Azithromycin [Zithromax] 500 mg PO DAILY 3 Days #3 tablet 09/29/17 [Rx] Furosemide [Lasix] 40 mg PO QAM PRN #30 tablet 09/29/17 [Rx] Melatonin 3 mg PO HS PRN #0 tablet 09/29/17 [Rx] Simvastatin [Zocor] 10 mg PO HS #30 tablet 09/29/17 [Rx] predniSONE [PredniSONE] 10 mg PO DAILY #10 tablet 09/29/17 [Rx] Allergies/Adverse Reactions: 3 Allergy/AdvReac Type Severity Reaction Status Date / Time No Known Allergies Allergy Verified 09/20/17 11:37 Certification: Further, I certify that my clinical findings support that this patient is homebound (i.e. absences from home require considerable and taxing effort and are for medical reasons or catholic services or infrequently or short duration when for other reasons) because: Homebound Reason: Patient requires assistance of a person or device to safely leave home Attestation: My signature below is to certify that this patient is under my care and that I, or nurse practitioner, or a physician's personalized living assistant working with me, has a face-to -face encounter with this patient.
[2017-09-29 14:26] VITALS: BP 129/74
--- NOTE | 2017-10-01 09:31 | Electrocardiograph Report ---
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
== END 2017-09-29 15:27 | disposition home health service (06) | DRG 190 ==
LOC: 3BNU 22:31 → EMEROO 22:31 → 3BNU 09-25 01:32
PROVIDERS: ADMIT Internal Medicine; ATTEND Registered Nurse